=== PATIENT | male | born 1970 | race Caucasian/White ===

== ENCOUNTER 2020-02-15 18:53 | Inpatient (IN) | payer OTHER ==
--- OUTSIDE RECORDS SUMMARY | 2020-02-15 19:12 | XMS ---
:1970 Author Organization [facility] Support Name Relationship Address Phone [facility] Unavailable [address] [place] [address] GERALDINE PARDO [address] [place] [address] Re-disclosure Warning The records that you are about to access may contain information from federally- assisted alcohol or drug abuse programs. If such information is present, then the following federally mandated warning applies: This information has been disclosed to you from records protected by federal confidentiality rules (42 CFR part 2). The federal rules prohibit you from making any further disclosure of this information unless further disclosure is expressly permitted by the written consent of the person to whom it pertains or as otherwise permitted by 42 CFR part 2. A general authorization for the release of medical or other information is NOT sufficient for this purpose. The Federal rules restrict any use of the information to criminally investigate or prosecute any alcohol or drug abuse patient.The records that you are about to access may contain highly sensitive health information, the redisclosure of which is protected by Article 27-F of the [facility] Public Health law. If you continue you may haveaccess to information: Regarding HIV / AIDS; Provided by facilities licensed or operated by the [facility] Office of Mental Health; or Provided by the [facility] Office for People With Developmental Disabilities. If such information is present, then the following [facility] mandated warning applies: This information has been disclosed to you from confidential records which are protected by state law. State law prohibits you from making any further disclosure of this information without the specific written consent of the person to whom it pertains, or as otherwise permitted by law. Any unauthorized further disclosure in violation of state law may result in a fine or detention sentence or both. A general authorization for the release of medical or other information is NOT sufficient authorization for further disclosure. Insurance Providers Payer name Policy type / Policy ID Covered Covered green party's Policy Plan Coverage type green party ID relationship to Mcnulty Information mcnulty LORETO SNOWO [id number] SO [id number] 5
--- NOTE | 2020-02-15 20:23 | PDOC ---
Attending Attestation - Resident Resident Name: Gabriel James - ED Attending Attestation I have performed the following: I have examined & evaluated the patient, The case was reviewed & discussed with the resident, I agree w/resident's findings & plan - HPI HPI: 02/15/20 21:14 PT COMES WITH PUS IN HIS RIGHT GROIN. HE HAS HAD THIS FOR 3 WEEKS. TOOK A 10 DAY COURSE OF CLINDA WITH SOME RELIEF BUT NOT A LOT. PT TOOK BACTRIM DS FOR 8 DAYS AND THEN VISITED [facility] TODAY AND THEY SENT HIM HERE. PT HAS NO FEVER; HE IS MORBIDLY OBESE AND HE HAS HUGE PANNUS AND THIGH AND PUS IS TRAPPED BY HIS FAT AND CANNOT COME OUT. 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 I TOLD HIM TO USE HIS SICK DAYS WHICH HE ADMITS HE HAS PLENTY OF. - Physicial Exam PE: 02/15/20 21:19 AFEBRILE; AMBULATORY NAD MORBID OBESITY HEENT NORMAL HEART NORMAL LUNGS CTA B ABD OBESE GROIN GOOEY WITH PUS ONCE WE HOLD PANNUS BACK, PUS RUNS LIKE A FAUCET. PT WILL GET CT IMAGING - Medical Decision Making 02/15/20 21:20 LABS NORMAL FS GLUCOSE IS 500S AT [facility] HERE FS GLC IS 446 PT WILL GET REG INSULIN HERE 10U SUBCUTANEOUS VANCO HERE PCN ALLERGIC SO WE WILL GIVE MEROPENEM PT HAD A WOUND CULTURE SENT 02/15/20 21:23 PT WENT FOR CTA GROIN; ONCE RESULTS ARE BACK HE CAN BE ADMITTED 02/16/20 00:33 Patient Name: JACK PARDO THIS IS A PRELIMINARY REPORT FROM [facility] DATE OF SERVICE:2020-02-15 21:43:43 IMAGES: 347 EXAM: CT abdomen and pelvis with contrast HISTORY:abscess in rt groin COMPARISON: None. FINDINGS: Lung bases unremarkable. No pleural effusions. Hepatomegaly with possible hepatic steatosis. Splenomegaly. Suspect tiny calcified gallstones in contracted gallbladder. Pancreas and adrenal glands are unremarkable. Mild bilateral renal cortical scarring. No renal or urinary calculi. No AAA. No evidence for diverticulitis, appendicitis, small bowel obstruction, free fluid, or free air. Soft tissue edema in the right groin extending into the right lateral lower anterior pelvic wall suggestive of cellulitis. No abscess or drainable fluid collection at this time. No soft tissue gas. Discharge - Discharge Information Problems reviewed: Yes Clinical Impression/Diagnosis: Hyperglycemia, Pustular lesion Condition: Improved Disposition: VNS/HOME HEALTH CARE - Follow up/Referral - Patient Discharge Instructions - Post Discharge Activity
--- NOTE | 2020-02-15 20:26 | PDOC ---
History of Present Illness - General Chief Complaint: Blood Sugar Problem Stated Complaint: ABSCESS/SENT BY CMD Time Seen by Provider: 02/15/20 20:21 - History of Present Illness Initial Comments: 02/15/20 20:23 49yo obese M currently on ABX (failed bactrim, now on clinda) for cutaneous infection of the groin presents from [facility] w/ elevated blood sugar. He went to [facility] for follow up because his wound, now multiple weeks old, has not been healing well. They found his BG to be >500, so he was sent to the ED. He endorses two different wounds, one in the RLQ that he says is healing very well. The other one is in the right intertriginous fold. This one is painful and draining pus actively. He denies fevers, n/v. Past History - Medical History Allergies/Adverse Reactions: Allergies Allergy/AdvReac Type Severity Reaction Status Date / Time Penicillins Allergy Verified 07/31/14 00:55 Home Medications: Ambulatory Orders Losartan Potassium [Cozaar -] 50 mg PO DAILY 07/31/14 COPD: No HTN: Yes - Immunization History Immunization Up to Date: Yes - Psycho-Social/Smoking History Smoking History: Never smoked - Substance Abuse Hx (Audit-C & DAST Scrn) How often the patient has a drink containing alcohol: Never Score: In Men: 4 or > Positive; In Women: 3 or > Positive: 0 Screen Result (Pos requires Nsg. Audit-10AR): Negative Review of Systems - Review of Systems Able to Perform ROS?: Yes Is the patient limited Iranian proficient: No Constitutional: No: Chills, Diaphoresis, Fever, Weakness HEENTM: No: Recent change in vision, Tinnitus Respiratory: No: Cough, Shortness of Breath Cardiac (ROS): No: Chest Pain, Palpitations, Syncope ABD/GI: No: Abd. Pain w/ defecation, Diarrhea, Nausea, Vomiting : Yes: Lesions (draining wound in the R intertriginous fold). No: Dysuria, Discharge, Frequency Musculoskeletal: No: Back Pain, Muscle Weakness Integumentary: Yes: Lesions Neurological: No: Headache, Numbness, Paresthesia, Weakness Endocrine: No: Symptoms Reported Hematologic/Lymphatic: No: Symptoms Reported All Other Systems: Reviewed and Negative *Physical Exam - Vital Signs Last Vital Signs Temp Pulse Resp BP Pulse Ox 97.3 F L 117 H 20 170/104 H 99 02/15/20 19:03 02/15/20 19:03 02/15/20 19:03 02/15/20 19:03 02/15/20 19:03 - Physical Exam General Appearance: Yes: Nourished, Appropriately Dressed. No: Apparent Distress, Disheveled HEENT: positive: EOMI, Normal ENT Inspection, Normal Voice Neck: positive: Trachea midline, Supple Respiratory/Chest: positive: Lungs Clear. negative: Chest Tender Cardiovascular: positive: Regular Rhythm, Tachycardia Gastrointestinal/Abdominal: positive: Normal Bowel Sounds, Soft, Protuberent, Other (1 cm long actively pus-draining lesion in the R intertriginous fold. it is surrounded by 1" wide erythematous ring. There is also a 1" healing wound in the RLQ/R hypogastrum btw ASIS and pubic symphysis that is not draining.). negative: Pulsatile Mass, Guarding Male Genitalia: positive: normal genitalia. negative: discharge, testicular mass, CVAT, hematuria Musculoskeletal: positive: Normal Inspection, CVA Tenderness Extremity: positive: Normal Capillary Refill. negative: Pedal Edema, Swelling Integumentary: positive: Normal Color, Dry, Warm Neurologic: positive: Fully Oriented, Alert, Normal Mood/Affect ED Treatment Course - LABORATORY CBC & Chemistry Diagram: 02/16/20 05:55 02/16/20 05:55 Medical Decision Making - Medical Decision Making 02/15/20 21:29 49yo obese M w/ 3wks of groin wound on 2nd ABX and now draining pus from lesion. BG >500, now 440s obese male + elevated BG + groin wound -> possible new DM2 dx and fear of Tiana's -> ABX IV + CT of ABD/Pelvis + LR + insulin. Pt's CBC and CMP unremarkable except for Na 131 and BG 446. BUN, Cr, Anion gap, K all wnl Will admit for blood sugar control, possible new DM dx, and tx of abscess. Discharge - Discharge Information Problems reviewed: Yes Clinical Impression/Diagnosis: Hyperglycemia, Pustular lesion Condition: Good - Admission Yes - Follow up/Referral - Patient Discharge Instructions - Post Discharge Activity
[2020-02-15] MEDS ORDERED: SODIUM CHLORIDE 1,000 ML IV STA (20:34)
[2020-02-15 20:38] LABS: BASO % 0.7 % (0-2.0); EOS % 0.8 % (0-4.5); HEMATOCRIT 43.7 % (35.4-49); HEMOGLOBIN 14.6 GM/dL (11.7-16.9); LYMPH % 22.4 % (8-40); MCH 30.8 pg (25.7-33.7); MCHC 33.3 g/dl (32.0-35.9); MEAN CELL VOLUME 92.6 fl (80-96); MEAN PLT VOLUME 7.8 fl (7.5-11.1); NEUT % 69.1 % (42.8-82.8); PLATELET COUNT 355 K/MM3 (134-434); RBC 4.72 M/mm3 (4.00-5.60); RDW 13.7 % (11.9-15.9); WHITE BLOOD COUNT 9.5 K/mm3 (4.0-10.0)
[2020-02-15 20:45] LABS: VENOUS BASE EXCESS -4.5 mmol/L (-2-2); VENOUS O2 SATURATION 83.5 % (70-80); VENOUS PCO2 36.3 mmHg (38-52); VENOUS PH 7.362 (7.310-7.410)
[2020-02-15] MEDS ORDERED: LACTATED RINGERS SOLUTION 1000 ML INFUS.BAG IV ONE (20:45)
[2020-02-15 20:51] LABS: INR 1.01 (0.83-1.09); PROTHROMBIN TIME (PATIENT) 11.9 SEC (9.7-13.0)
[2020-02-15 20:54] LABS: ACTIVATED PTT 29.9 SECONDS (25.2-36.5)
[2020-02-15 21:07] LABS: BILIRUBIN,TOTAL 0.6 mg/dL (0.2-1); BLOOD UREA NITROGEN 12.4 mg/dL (7-18); CALCIUM 8.8 mg/dL (8.5-10.1); CREATININE 0.8 mg/dL (0.55-1.3); POTASSIUM 4.3 mmol/L (3.5-5.1); TOT PROT 7.2 g/dl (6.4-8.2)
[2020-02-15] MEDS ORDERED: VANCOMYCIN 1 GM in D5W (PRE-DOCKED) 1,000 MG/250 ML IVPB ONE (21:14)
[2020-02-15] MEDS ORDERED: INSULIN REGULAR HUMAN 100 UNITS/ML *VIAL SQ ONE (21:24)
[2020-02-15] MEDS ORDERED: VANCOMYCIN 1 GRAM (PRE-DOCKED) 1,000 MG/250 ML BAG IVPB ONE (21:43)
--- OUTSIDE RECORDS SUMMARY | 2020-02-16 00:28 | XMS ---
:1970 Author Organization [facility] Support Name Relationship Address Phone [facility] Unavailable [address] [facility] [place] [address] [address] [place] [address] Re-disclosure Warning The records that you are [...] is protected by Article 27-F of the [facility] Public Health law. If you continue you may haveaccess to information: Regarding HIV / AIDS; Provided by facilities licensed or operated by the [facility] Office of Mental Health; or Provided by the [facility] Office for People With Developmental Disabilities. If such information is present, then the following [facility] mandated warning applies: This information has been [...] law may result in a fine or care home sentence or both. A general authorization for the release of medical or other information is NOT sufficient authorization for further disclosure. Insurance Providers Payer name Policy type / Policy ID Covered Covered alliance party's Policy Plan Coverage type alliance party ID relationship to Mcnulty Information mcnulty LORETO SNOWO [id number] SO [id number] 5
--- NOTE | 2020-02-16 01:07 | PN ---
Teaching Attending Note Name of Resident: Emiliaon Griffin ATTENDING PHYSICIAN STATEMENT I saw and evaluated the patient. I reviewed the resident's note and discussed the case with the resident. I agree with the resident's findings and plan as documented. SUBJECTIVE: 49yoM with obesity and hypertension who presents with redness and pain in his groin and right lower abdominal area. Patient reports about 3 weeks ago he developed a rash in the right inguinal area. He was prescribed clindamycin by telemedicine and completed a 10 day course during which time he noticed purulent drainage from the groin. The rash improved but was not resolving so telemedicine prescribed him Bactrim which he has been taking for the past 7 days but still without improvement of the rash or drainage. Endorses one prior episode of groin abscess many years ago which resolved with oral antibiotics. Denies fever, chills, nausea, vomiting, diarrhea. Does note polydipsia, polyuria, and blurry vision for the past month. Afebrile on arrival to the ED, BP and HR elevated. Purulent drainage noted from the right groin. Labs show WBC 9.5, sodium 131 but corrected to 140, glucose 487, lactic acid 1.5. CT of the abd/pelvis showed soft tissue edema in the right groin extending to the right lateral lower anterior pelvic wall, no abscess or drainable fluid collection and no soft tissue gas. Patient received vancomycin, levofloxacin, and metronidazole. OBJECTIVE: Vital Signs - 24 hr 02/15/20 02/16/20 19:03 01:31 Temperature 97.3 F L 97.8 F Pulse Rate 117 H Pulse Rate [ 99 H Right Radial] Respiratory 20 18 Rate Blood Pressure 170/104 H Blood Pressure 139/84 [Right Arm] O2 Sat by Pulse 99 98 Oximetry (%) EXAM Gen: awake, alert, NAD HEENT: NC/AT CV: RRR, no MRG Resp: CTAB, unlabored Abd: Soft, NT, ND, +BS Ext: No edema Derm: Mild erythema right lower abdominal wall surrounding 3cm scab, nontender, not warm to touch. Erythema is discrete from wound in right groin, with active purulent drainage. Neuro: CN II-XII grossly intact Laboratory Results - last 24 hr 02/15/20 02/15/20 02/15/20 20:15 20:15 20:15 WBC 9.5 RBC 4.72 Hgb 14.6 Hct 43.7 MCV 92.6 MCH 30.8 MCHC 33.3 RDW 13.7 Plt Count 355 MPV 7.8 Absolute Neuts (auto) 6.5 Neutrophils % 69.1 Lymphocytes % 22.4 Monocytes % 7.0 Eosinophils % 0.8 Basophils % 0.7 Nucleated RBC % 0 PT with INR 11.90 INR 1.01 PTT (Actin FS) 29.9 VBG pH 7.362 POC VBG pCO2 36.3 L POC VBG pO2 49.0 H VBG HCO3 20.1 L VBG O2 Sat (Renetta) 83.5 H VBG Base Excess -4.5 L Sodium Potassium Chloride Carbon Dioxide Anion Gap BUN Creatinine Est GFR (CKD-EPI)AfAm Est GFR (CKD-EPI)NonAf POC Glucometer Random Glucose Lactic Acid Calcium Total Bilirubin AST ALT Alkaline Phosphatase Total Protein Albumin 02/15/20 02/15/20 02/15/20 20:15 20:15 21:21 WBC RBC Hgb Hct MCV MCH MCHC RDW Plt Count MPV Absolute Neuts (auto) Neutrophils % Lymphocytes % Monocytes % Eosinophils % Basophils % Nucleated RBC % PT with INR INR PTT (Actin FS) VBG pH POC VBG pCO2 POC VBG pO2 VBG HCO3 VBG O2 Sat (Renetta) VBG Base Excess Sodium 131 L Potassium 4.3 Chloride 97 L Carbon Dioxide 24 Anion Gap 11 BUN 12.4 Creatinine 0.8 Est GFR (CKD-EPI)AfAm 122.43 Est GFR (CKD-EPI)NonAf 105.63 POC Glucometer 446 Random Glucose 487 H* Lactic Acid 1.5 Calcium 8.8 Total Bilirubin 0.6 AST 22 ALT 34 Alkaline Phosphatase 104 Total Protein 7.2 Albumin 3.0 L 02/16/20 00:33 WBC RBC Hgb Hct MCV MCH MCHC RDW Plt Count MPV Absolute Neuts (auto) Neutrophils % Lymphocytes % Monocytes % Eosinophils % Basophils % Nucleated RBC % PT with INR INR PTT (Actin FS) VBG pH POC VBG pCO2 POC VBG pO2 VBG HCO3 VBG O2 Sat (Renetta) VBG Base Excess Sodium Potassium Chloride Carbon Dioxide Anion Gap BUN Creatinine Est GFR (CKD-EPI)AfAm Est GFR (CKD-EPI)NonAf POC Glucometer 332 Random Glucose Lactic Acid Calcium Total Bilirubin AST ALT Alkaline Phosphatase Total Protein Albumin Imaging, EKG reviewed in chart ASSESSMENT AND PLAN: 49yoM with obesity and hypertension admitted with right groin purulent cellulitis resistant to outpatient management and hyperglycemia. Purulent cellulitis right groin Without resolution despite outpatient clindamycin and Bactrim No drainable abscess on CT, no evidence of Tiana's gangrene s/p vancomycin, levofloxacin, and metronidazole (reported penicillin allergy) - f/u blood and wound cultures - continue empiric vancomycin, levofloxacin, metronidazole - ID consult Hyperglycemia Glucose in 400s on arrival with ROS positive for polyuria, polydipsia, and blurry vision High suspicion for diabetes - ISS - check A1c DVT ppx: Lovenox subq
--- NOTE | 2020-02-16 01:31 | HP ---
CHIEF COMPLAINT: Draining groin wound PCP: HISTORY OF PRESENT ILLNESS: Mr. Keys is a 49M w a pmhx of htn and Right meniscal tear repair 20 years ago presenting to the ED for a chief complaint of a persistently draining erythematous non tender wound in his right inguinal fold and right lower quadrant lateral to the umbilicus. The patient reports this had started 3 weeks ago and was prescribed clindamycin and bactrim. The patient reports slow remission of the swelling and redness. He reports that his job requires prolonged sitting which has recently irritated the area and has caused increased inflammation of the area. The patient endorses prior inflammation of a groin wound many years ago. He states that he has never experienced increased thirst, urination, pain in his legs feet or hands, change in bowel habits, chest pain, or shortness of breath. ER course was notable for: (1) Glucose of 458 (2) Sodium 131 (3) BP 170s/100s Recent Travel: denies PAST MEDICAL HISTORY: see above PAST SURGICAL HISTORY: see above Social History: Smoking: denies Alcohol: denies Drugs: denies Allergies Penicillins Allergy (Verified 07/31/14 00:55) HOME MEDICATIONS: Home Medications Medication Instructions Recorded Losartan Potassium [Cozaar -] 50 mg PO DAILY 07/31/14 REVIEW OF SYSTEMS see hpi PHYSICAL EXAMINATION Vital Signs - 24 hr 02/15/20 19:03 Temperature 97.3 F L Pulse Rate 117 H Respiratory 20 Rate Blood Pressure 170/104 H O2 Sat by Pulse 99 Oximetry (%) GENERAL: Awake, alert, and fully oriented, in no acute distress. HEAD: Normal with no signs of trauma. LUNGS: Breath sounds equal, clear to auscultation bilaterally. No wheezes, and no crackles. No accessory muscle use. HEART: Regular rate and rhythm, normal S1 and S2 without murmur, rub or gallop. ABDOMEN: Soft, nontender, not distended, normoactive bowel sounds, no guarding, no rebound, no masses. No hepatomegaly or splenomegaly. LOWER EXTREMITIES: 2+ pulses, warm, well-perfused. No calf tenderness. No peripheral edema. SKIN: right inguinal fold draining white puss, erythema of right inguinal fold extending down medial thigh toward the dorsal aspect of r thigh, RLQ abdomenal erythema with scab Laboratory Results - last 24 hr 02/15/20 02/15/20 02/15/20 20:15 20:15 20:15 WBC 9.5 RBC 4.72 Hgb 14.6 Hct 43.7 MCV 92.6 MCH 30.8 MCHC 33.3 RDW 13.7 Plt Count 355 MPV 7.8 Absolute Neuts (auto) 6.5 Neutrophils % 69.1 Lymphocytes % 22.4 Monocytes % 7.0 Eosinophils % 0.8 Basophils % 0.7 Nucleated RBC % 0 PT with INR 11.90 INR 1.01 PTT (Actin FS) 29.9 VBG pH 7.362 POC VBG pCO2 36.3 L POC VBG pO2 49.0 H VBG HCO3 20.1 L VBG O2 Sat (Renetta) 83.5 H VBG Base Excess -4.5 L Sodium Potassium Chloride Carbon Dioxide Anion Gap BUN Creatinine Est GFR (CKD-EPI)AfAm Est GFR (CKD-EPI)NonAf POC Glucometer Random Glucose Lactic Acid Calcium Total Bilirubin AST ALT Alkaline Phosphatase Total Protein Albumin 02/15/20 02/15/20 02/15/20 20:15 20:15 21:21 WBC RBC Hgb Hct MCV MCH MCHC RDW Plt Count MPV Absolute Neuts (auto) Neutrophils % Lymphocytes % Monocytes % Eosinophils % Basophils % Nucleated RBC % PT with INR INR PTT (Actin FS) VBG pH POC VBG pCO2 POC VBG pO2 VBG HCO3 VBG O2 Sat (Renetta) VBG Base Excess Sodium 131 L Potassium 4.3 Chloride 97 L Carbon Dioxide 24 Anion Gap 11 BUN 12.4 Creatinine 0.8 Est GFR (CKD-EPI)AfAm 122.43 Est GFR (CKD-EPI)NonAf 105.63 POC Glucometer 446 Random Glucose 487 H* Lactic Acid 1.5 Calcium 8.8 Total Bilirubin 0.6 AST 22 ALT 34 Alkaline Phosphatase 104 Total Protein 7.2 Albumin 3.0 L 02/16/20 00:33 WBC RBC Hgb Hct MCV MCH MCHC RDW Plt Count MPV Absolute Neuts (auto) Neutrophils % Lymphocytes % Monocytes % Eosinophils % Basophils % Nucleated RBC % PT with INR INR PTT (Actin FS) VBG pH POC VBG pCO2 POC VBG pO2 VBG HCO3 VBG O2 Sat (Renetta) VBG Base Excess Sodium Potassium Chloride Carbon Dioxide Anion Gap BUN Creatinine Est GFR (CKD-EPI)AfAm Est GFR (CKD-EPI)NonAf POC Glucometer 332 Random Glucose Lactic Acid Calcium Total Bilirubin AST ALT Alkaline Phosphatase Total Protein Albumin ASSESSMENT/PLAN: Mr. Keys is a 49M w a pmhx of htn and Right meniscal tear repair 20 years ago presenting to the ED for a chief complaint of a persistently draining erythematous non tender wound in his right inguinal fold and right lower quadrant lateral to the umbilicus admitted for cellulitis. #Cellulitis vs hydraditis Suppurativa - absent axilary fold infection - inguinal folds have been responsive to bactrim and clindamycin - patient placed on vanc, flagyl, levaquin - consult ID - CT AP reveals - #?DM - Glucose 487 - continue to monitor sugars - A1C > 6.5 - ISS - sodium diabetic diet - diabetic counseling Pseudohyponatremia - when corrected for glucose - Sodium = 140 = wnl #HTN - continue home losartan - sodium controlled diet - CTM BP #DVT ppx - Lovenox 40mg SQ #DISPO - medsurg #Advanced directive - Full code ATTENDING PHYSICIAN STATEMENT I saw and evaluated the patient. I reviewed the resident's note and discussed the case with the resident. I agree with the resident's findings and plan as documented. SUBJECTIVE: OBJECTIVE: ASSESSMENT AND PLAN:
[2020-02-16] MEDS ORDERED: PNEUMOC 13-VAL CONJ-DIP CRM/PF 0.5 ML DISP.SYRIN IM ONE (02:19)
[2020-02-16] MEDS ORDERED: FLU VACCINE (FLULAVAL) PF 60 MCG/0.5 ML SYRINGE 2020-2021 IM ONE (02:20)
[2020-02-16] MEDS ORDERED: ACETAMINOPHEN 1000 MG/100 ML VIAL (NON FORMULARY) IVPB ONE (02:31)
[2020-02-16] MEDS ORDERED: INSULIN (NOVOLOG) ASPART 100 UNITS/ML 10ML VIAL SQ ONE ×2 (02:33→03:24)
[2020-02-16] MEDS ORDERED: INSULIN SLIDING SCALE (NOVOLOG) 1 VIAL SQ ONE (03:16)
[2020-02-16 04:11] VITALS: BMI 47.1
[2020-02-16] MEDS: INSULIN SLIDING SCALE (NOVOLOG) 1 VIAL SQ SCH ×4 (06:22→21:24)
[2020-02-16 07:03] LABS: BASO % 0.7 % (0-2.0); EOS % 1.9 % (0-4.5); HEMATOCRIT 36.5 % (35.4-49); HEMOGLOBIN 12.2 GM/dL (11.7-16.9); LYMPH % 33.2 % (8-40); MCH 30.4 pg (25.7-33.7); MCHC 33.4 g/dl (32.0-35.9); MEAN PLT VOLUME 7.3 fl (7.5-11.1); MONO % 9.3 % (3.8-10.2); NEUT % 54.9 % (42.8-82.8); PLATELET COUNT 280 K/MM3 (134-434); RBC 4.01 M/mm3 (4.00-5.60); RDW 13.5 % (11.9-15.9); WHITE BLOOD COUNT 7.4 K/mm3 (4.0-10.0)
[2020-02-16 07:31] LABS: ALBUMIN 2.3 g/dl (3.4-5.0); BILIRUBIN,TOTAL 0.5 mg/dL (0.2-1); BLOOD UREA NITROGEN 9.2 mg/dL (7-18); CALCIUM 8.2 mg/dL (8.5-10.1); CREATININE 0.8 mg/dL (0.55-1.3); MAGNESIUM 1.7 mg/dL (1.8-2.4); POTASSIUM 3.8 mmol/L (3.5-5.1); TOT PROT 5.6 g/dl (6.4-8.2)
[2020-02-16] MEDS ORDERED: MAGNESIUM 2GM/50ML STERILE WATER IVPB IVPB ONE (07:41)
[2020-02-16] MEDS: ENOXAPARIN NA (PORCINE) 40 MG/0.4 ML DISP.SYRIN SQ SCH ×2 (09:17→21:24)
[2020-02-16] MEDS: INSULIN (LEVEMIR) 100 UNITS/ML UNITS SQ SCH ×2 (09:23→21:24)
[2020-02-16] MEDS ORDERED: WATER IVPB SCH (10:00)
[2020-02-16] MEDS ORDERED: DEXTROSE 5% IVPB SCH (10:00)
[2020-02-16] MEDS ORDERED: ENOXAPARIN NA (PORCINE) 40 MG/0.4 ML DISP.SYRIN SQ SCH (10:00)
[2020-02-16] MEDS ORDERED: VANCOMYCIN HCL IVPB SCH (10:00)
--- NOTE | 2020-02-16 10:02 | PN ---
Progress Note (short form) - Note Progress Note: ID CONSULT DICTATED SOFT TISSUE ABSCESSES RLQ ABDO WALL, R GROIN R/O SEPSIS SECONDARY TO ST INFECTION UNCONTROLLED NEW ONSET DM MORBID OBESITY PCN ALLERGY AWAIT C/S SURGICAL EVAL EMPIRIC VANCOMYCIN/ AZTREONAM/ FLAGYL
--- NOTE | 2020-02-16 10:06 | PN ---
Teaching Attending Note Name of Resident: Christa Dalton ATTENDING PHYSICIAN STATEMENT I saw and evaluated the patient. I reviewed the resident's note and discussed the case with the resident. I agree with the resident's findings and plan as documented. SUBJECTIVE: pt seen and examined at bedside OBJECTIVE: Last Vital Signs Temp Pulse Resp BP Pulse Ox 98.0 F 94 H 18 122/76 97 02/16/20 06:00 02/16/20 06:00 02/16/20 06:00 02/16/20 06:00 02/16/20 06:00 GENERAL: Awake, alert, and fully oriented, in no acute distress. HEAD: Normal with no signs of trauma. EYES: Pupils equal, round and reactive to light, sclera anicteric, conjunctiva clear. LUNGS: Breath sounds equal, clear to auscultation bilaterally. No wheezes, and no crackles. No accessory muscle use. HEART: Regular rate and rhythm, normal S1 and S2 ABDOMEN: Soft, nontender, not distended MUSCULOSKELETAL: Normal range of motion at all joints. No bony deformities or tenderness. No CVA tenderness. UPPER EXTREMITIES: 2+ pulses, warm, well-perfused. No cyanosis. No clubbing. No peripheral edema. LOWER EXTREMITIES: 2+ pulses, warm, well-perfused. No calf tenderness. No peripheral edema. NEUROLOGICAL: Cranial nerves II-XII intact. Normal speech. skin: rt groin cellulitis +/- abcess/fluid collection, actively draining and on pressure, serosanguinous CBCD WBC 7.4 K/mm3 (4.0-10.0) 02/16/20 05:55 RBC 4.01 M/mm3 (4.00-5.60) 02/16/20 05:55 Hgb 12.2 GM/dL (11.7-16.9) 02/16/20 05:55 Hct 36.5 % (35.4-49) D 02/16/20 05:55 MCV 91.0 fl (80-96) 02/16/20 05:55 MCHC 33.4 g/dl (32.0-35.9) 02/16/20 05:55 RDW 13.5 % (11.9-15.9) 02/16/20 05:55 Plt Count 280 K/MM3 (134-434) D 02/16/20 05:55 MPV 7.3 fl (7.5-11.1) L 02/16/20 05:55 CMP Sodium 136 mmol/L (136-145) 02/16/20 05:55 Potassium 3.8 mmol/L (3.5-5.1) 02/16/20 05:55 Chloride 101 mmol/L (98-107) 02/16/20 05:55 Carbon Dioxide 26 mmol/L (21-32) 02/16/20 05:55 Anion Gap 8 MMOL/L (8-16) 02/16/20 05:55 BUN 9.2 mg/dL (7-18) 02/16/20 05:55 Creatinine 0.8 mg/dL (0.55-1.3) 02/16/20 05:55 Calcium 8.2 mg/dL (8.5-10.1) L 02/16/20 05:55 Total Bilirubin 0.5 mg/dL (0.2-1) 02/16/20 05:55 AST 16 U/L (15-37) 02/16/20 05:55 ALT 26 U/L (13-61) 02/16/20 05:55 Alkaline Phosphatase 76 U/L (45-117) 02/16/20 05:55 Total Protein 5.6 g/dl (6.4-8.2) L 02/16/20 05:55 Albumin 2.3 g/dl (3.4-5.0) L 02/16/20 05:55 Active Medications Enoxaparin Sodium (Lovenox -) 40 mg SQ BID TRACEY Last Admin: 02/16/20 09:17 Dose: 40 mg Documented by: Vancomycin HCl 2,000 mg/ (Dextrose) 250 mls @ 125 mls/hr IVPB Q12H TRACEY; Protocol Metronidazole (Flagyl 500mg Premixed Ivpb -) 500 mg in 100 mls @ 100 mls/hr IVPB Q6H-IV TRACEY Last Admin: 02/16/20 09:17 Dose: 100 mls/hr Documented by: Levofloxacin (Levaquin 750 Mg Premixed Ivpb -) 750 mg in 150 mls @ 100 mls/hr IVPB ONCE ONE; Protocol Stop: 02/16/20 23:29 Influenza Virus Vaccine (Flulaval Quad [facility]) 60 mcg IM .ONCE ONE Stop: 02/16/20 02:21 Insulin Aspart (Novolog Vial Sliding Scale -) 1 vial SQ [facility]; Protocol Last Admin: 02/16/20 06:22 Dose: 6 units Documented by: Insulin Aspart (Novolog Vial) 5 units SQ TIDAC [facility] Insulin Detemir (Levemir Vial) 20 units SQ BID@0700,2200 [facility] Last Admin: 02/16/20 09:23 Dose: 20 units Documented by: Pneumococcal 13-Valent Conj Vacc (Prevnar 13 Syringe -) 0.5 ml IM .ONCE ONE Stop: 02/16/20 02:20 ASSESSMENT AND PLAN: 49 YO man with Mhx of HTN, and morbid obesity who presented to ED due to rt groin area cellulits not responding to outpatient Abx therapy. # Rt Groin Cellulitis -abscess/fluid collection forming -failed outpatient clindamycin and bactrim PO -received vancomycin/levofloxacin, metronidazole in ED -ID consult requested to adjust ABx regimen (penicillin allergy) -CT a/p noted. -surgical consult appreciated -ID consult appreciated -discussed with consult -plan for I&D with surgery # new onset DM -started on Levimir BID, novolog with meals plus sliding scale -goal for inpatient 140-180 -HgA1c is 14 -recent eye exam repoorted normal -will obtain UA, ptn/creatinine, lipid profile -keep ACEi -wt loss, diet, exercise discussed HTN Morbid obesity DVT prophylaxis
--- NOTE | 2020-02-16 10:42 | CONS ---
INFECTIOUS DISEASE CONSULTATION DATE OF CONSULTATION: DATE OF DICTATION: 02/16/2020 HISTORY: The patient is a 49-year-old morbidly obese male evaluated for soft tissue infection of the right groin and right lower abdomen. Patient states that he has a sedentary job. He reports that he had been sitting for prolonged periods at his desk. Approximately 3 weeks ago he began to notice some purulent drainage from an erythematous area on the right lower abdomen and the right groin. He had sought medical attention via telemedicine and was prescribed a 10-day course of clindamycin. Despite the course of therapy, he did not see any significant improvement. He was subsequently prescribed an 8-day course of Bactrim. Again, he did not notice significant improvement. He presented to an urgent care center where he was noted to have uncontrolled blood sugar and was referred to the emergency room. In the emergency room he was noted to have grossly purulent drainage from a right groin wound, elevated blood sugars. He denies any associated fever or chills. He denies any prior history of serious soft tissue infection, states that he has not been diagnosed with diabetes, denies history of multidrug-resistant pathogens. No recent hospitalizations. PAST MEDICAL HISTORY: Positive for morbid obesity, now probable new onset diabetes mellitus. ALLERGIES: To PENCIILLIN. Nature of the PENICILLIN ALLERGY not known. Patient reports that his mother told him in childhood that he was allergic. He has no recall for any anaphylactic reaction. MEDICATIONS AT THE PRESENT TIME: Include vancomycin, Levaquin, Flagyl, Lovenox, losartan, insulin. SOCIAL HISTORY: He resides in the community, works doing office work, sedentary. Nonsmoker, nondrinker. SYSTEMS REVIEW: Neurologic: No loss of consciousness, seizure activity, focal weakness. Cardiac: Negative chest pain or palpitations. Respiratory: Negative cough or sputum production. Gastrointestinal: Negative vomiting or diarrhea. Genitourinary: Negative for urinary tract infection. LABORATORY DATA: White count 7.4, neutrophils 54, lymphocytes 33, monocytes 7, hematocrit 36.5, platelet count 280. BUN 9.2, creatinine 0.8. Hemoglobin A1c 14. Glucose 327; it had been as high as 487. COVID-19 pending. PHYSICAL EXAMINATION: General: He is awake and alert. He is in no acute distress. He is not acutely toxic appearing, morbidly obese supine in bed. Vital Signs: Temperature 98.0. No fever noted. Blood pressure 122/76, pulse 94 regular, respirations 18 per minute. HEENT: Sclerae are anicteric. Heart: Sounds S1, S2. Lungs: Clear. Abdomen: Obese, nontender. There is a healed wound present in the right lower quadrant with some surrounding erythema and mild induration. There is no expressible pus. Skin: Examination of the right groin there is induration and swelling present on the right lateral scrotum adjacent to the medial thigh. There is also area of induration and erythema present in the medial thigh in the groin. There is purulent drainage noted. No crepitus or fluctuance. IMPRESSION: 1. Soft tissue absence right lower quadrant abdominal wall and right groin. 2. Rule out sepsis secondary to soft tissue infection. 3. Possible impending Tiana syndrome. 4. Rule out hidradenitis suppurativa. 5. Uncontrolled new onset diabetes mellitus. 6. Morbid obesity. 7. PENICILLIN ALLERGY. Await culture results. Urgent surgical evaluation. Empiric antibiotic coverage in this PENICILLIN ALLERGIC patient with vancomycin, Azactam and Flagyl. Local wound care. Blood sugar control. Thank you for the kind referral. SHERYL GRAY M.D. [id number]
[2020-02-16] MEDS: LOSARTAN POTASSIUM 50 MG TABLET PO SCH (10:52)
[2020-02-16] MEDS: VANCOMYCIN HCL 1,500 MG in DEXTROSE 5%-WATER - 500 ML IVPB SCH ×2 (12:30→22:06)
--- NOTE | 2020-02-16 12:32 | PN ---
Physical Exam: SUBJECTIVE: Patient seen and examined. Denies any fever, chills, groin pain. OBJECTIVE: Vital Signs Period Temp Pulse Resp BP Sys/Alamguer Pulse Ox Last 24 Hr 97.3 F-99.0 F 88-117 18-20 122-170/76-104 97-100 GENERAL: The patient is awake, alert, and fully oriented, in no acute distress. HEAD: Normal with no signs of trauma. EYES: PERRL, extraocular movements intact, sclera anicteric, conjunctiva clear. No ptosis. ENT: Ears normal, nares patent, oropharynx clear without exudates, moist mucous membranes. NECK: Trachea midline, full range of motion, supple. LUNGS: Breath sounds equal, clear to auscultation bilaterally, no wheezes, no crackles, no accessory muscle use. HEART: Regular rate and rhythm, S1, S2 without murmur, rub or gallop. ABDOMEN: Soft, nontender, nondistended, normoactive bowel sounds, no guarding, no rebound, no hepatosplenomegaly, no masses. EXTREMITIES: 2+ pulses, warm, well-perfused, no edema. NEUROLOGICAL: Cranial nerves II through XII grossly intact. Normal speech, gait not observed. PSYCH: Normal mood, normal affect. SKIN: R groin cellulitis with fluid collection, serosanguineous draining on pressure Laboratory Results - last 24 hr 02/15/20 02/15/20 02/15/20 20:15 20:15 20:15 WBC 9.5 RBC 4.72 Hgb 14.6 Hct 43.7 MCV 92.6 MCH 30.8 MCHC 33.3 RDW 13.7 Plt Count 355 MPV 7.8 Absolute Neuts (auto) 6.5 Neutrophils % 69.1 Lymphocytes % 22.4 Monocytes % 7.0 Eosinophils % 0.8 Basophils % 0.7 Nucleated RBC % 0 PT with INR 11.90 INR 1.01 PTT (Actin FS) 29.9 VBG pH 7.362 POC VBG pCO2 36.3 L POC VBG pO2 49.0 H VBG HCO3 20.1 L VBG O2 Sat (Renetta) 83.5 H VBG Base Excess -4.5 L Sodium Potassium Chloride Carbon Dioxide Anion Gap BUN Creatinine Est GFR (CKD-EPI)AfAm Est GFR (CKD-EPI)NonAf POC Glucometer Random Glucose Hemoglobin A1c % Lactic Acid Calcium Phosphorus Magnesium Total Bilirubin AST ALT Alkaline Phosphatase Total Protein Albumin 02/15/20 02/15/20 02/15/20 20:15 20:15 21:21 WBC RBC Hgb Hct MCV MCH MCHC RDW Plt Count MPV Absolute Neuts (auto) Neutrophils % Lymphocytes % Monocytes % Eosinophils % Basophils % Nucleated RBC % PT with INR INR PTT (Actin FS) VBG pH POC VBG pCO2 POC VBG pO2 VBG HCO3 VBG O2 Sat (Renetta) VBG Base Excess Sodium 131 L Potassium 4.3 Chloride 97 L Carbon Dioxide 24 Anion Gap 11 BUN 12.4 Creatinine 0.8 Est GFR (CKD-EPI)AfAm 122.43 Est GFR (CKD-EPI)NonAf 105.63 POC Glucometer 446 Random Glucose 487 H* Hemoglobin A1c % Lactic Acid 1.5 Calcium 8.8 Phosphorus Magnesium Total Bilirubin 0.6 AST 22 ALT 34 Alkaline Phosphatase 104 Total Protein 7.2 Albumin 3.0 L 02/16/20 02/16/20 02/16/20 00:33 03:12 05:55 WBC 7.4 RBC 4.01 Hgb 12.2 Hct 36.5 D MCV 91.0 MCH 30.4 MCHC 33.4 RDW 13.5 Plt Count 280 D MPV 7.3 L Absolute Neuts (auto) 4.0 Neutrophils % 54.9 D Lymphocytes % 33.2 D Monocytes % 9.3 Eosinophils % 1.9 D Basophils % 0.7 Nucleated RBC % 0 PT with INR INR PTT (Actin FS) VBG pH POC VBG pCO2 POC VBG pO2 VBG HCO3 VBG O2 Sat (Renetta) VBG Base Excess Sodium Potassium Chloride Carbon Dioxide Anion Gap BUN Creatinine Est GFR (CKD-EPI)AfAm Est GFR (CKD-EPI)NonAf POC Glucometer 332 287 Random Glucose Hemoglobin A1c % Lactic Acid Calcium Phosphorus Magnesium Total Bilirubin AST ALT Alkaline Phosphatase Total Protein Albumin 02/16/20 02/16/20 02/16/20 05:55 05:55 06:09 WBC RBC Hgb Hct MCV MCH MCHC RDW Plt Count MPV Absolute Neuts (auto) Neutrophils % Lymphocytes % Monocytes % Eosinophils % Basophils % Nucleated RBC % PT with INR INR PTT (Actin FS) VBG pH POC VBG pCO2 POC VBG pO2 VBG HCO3 VBG O2 Sat (Renetta) VBG Base Excess Sodium 136 Potassium 3.8 Chloride 101 Carbon Dioxide 26 Anion Gap 8 BUN 9.2 Creatinine 0.8 Est GFR (CKD-EPI)AfAm 122.43 Est GFR (CKD-EPI)NonAf 105.63 POC Glucometer 300 Random Glucose 327 H Hemoglobin A1c % 14.1 H Lactic Acid Calcium 8.2 L Phosphorus 4.0 Magnesium 1.7 L Total Bilirubin 0.5 AST 16 ALT 26 Alkaline Phosphatase 76 Total Protein 5.6 L Albumin 2.3 L 02/16/20 10:40 WBC RBC Hgb Hct MCV MCH MCHC RDW Plt Count MPV Absolute Neuts (auto) Neutrophils % Lymphocytes % Monocytes % Eosinophils % Basophils % Nucleated RBC % PT with INR INR PTT (Actin FS) VBG pH POC VBG pCO2 POC VBG pO2 VBG HCO3 VBG O2 Sat (Renetta) VBG Base Excess Sodium Potassium Chloride Carbon Dioxide Anion Gap BUN Creatinine Est GFR (CKD-EPI)AfAm Est GFR (CKD-EPI)NonAf POC Glucometer 257 Random Glucose Hemoglobin A1c % Lactic Acid Calcium Phosphorus Magnesium Total Bilirubin AST ALT Alkaline Phosphatase Total Protein Albumin Active Medications Generic Name Dose Route Start Last Admin Trade Name Sadiq PRN Reason Stop Dose Admin Enoxaparin Sodium 40 mg 02/16/20 10:00 02/16/20 09:17 Lovenox - SQ 40 mg BID TRACEY Administration Metronidazole 500 mg in 100 mls @ 100 mls/hr 02/16/20 09:00 02/16/20 09:17 Flagyl 500mg Premixed Ivpb - IVPB 100 mls/hr Q6H-IV TRACEY Administration Vancomycin HCl 1,500 mg/ 500 mls @ 250 mls/hr 02/16/20 10:15 Dextrose IVPB BID [facility] Protocol Aztreonam 2 gm/ Dextrose 100 mls @ 100 mls/hr 02/16/20 10:15 IVPB Q8H-IV TRACEY Protocol Influenza Virus Vaccine 60 mcg 02/16/20 02:20 Flulaval Quad [id number] Syr IM 02/16/20 02:21 .ONCE ONE Insulin Aspart 1 vial 02/16/20 07:00 02/16/20 06:22 Novolog Vial Sliding Scale - SQ 6 units ACHS TRACEY Administration Protocol Insulin Aspart 5 units 02/16/20 11:00 Novolog Vial SQ TIDAC [facility] Insulin Detemir 20 units 02/16/20 08:30 02/16/20 09:23 Levemir Vial SQ 20 units BID@0700,2200 TRACEY Administration Losartan Potassium 50 mg 02/16/20 10:00 02/16/20 10:52 Cozaar - PO 50 mg DAILY TRACEY Administration Pneumococcal 13-Valent Conj Vacc 0.5 ml 02/16/20 02:19 Prevnar 13 Syringe - IM 02/16/20 02:20 .ONCE ONE ASSESSMENT/PLAN: Pt is a 49 year old male with PMHx of HTN presenting to the ED with skin swelling and abscess not responding to outpatient antibiotic therapy, admitted for R groin cellulitis #Right groin cellulitis -received clindamycin and bactrim outpatient, no improvement of symptoms per pt -in ED, received vancomycin, levaquin and flagyl -ID consulted (PCN allergy), switched to vancomycin, aztreonam and flagyl -Surgery consulted (Dr. Handy), to evaluate #New onset DM -blood glucose on admission 487, A1c 14.1 -started on Levemir 20u BID, Novolog 5u TIDAC and SSI -ordered UA, Uprotein:Dark Room Attendant, lipid profile, microalbumin, lipid panel -continue Losartan, as will be renal protective in DM pt -Discussed weight loss, diet and exercise, and DM education -pseudohypernatremia on admission due to elevated bG #Hx of HTN -continue home Losartan FEN No standing fluids Monitor electrolytes Diabetic sodium diet PPx Lovenox 40mg BID Dispo Admitted to med surg. New onset DM, R groin cellulitis. On vanc, flagyl, aztreonam. ATTENDING PHYSICIAN STATEMENT I saw and evaluated the patient. I reviewed the resident's note and discussed the case with the resident. I agree with the resident's findings and plan as documented. SUBJECTIVE: OBJECTIVE: ASSESSMENT AND PLAN:
[2020-02-16] MEDS: INSULIN (NOVOLOG) ASPART 100 UNITS/ML 10ML VIAL SQ SCH ×2 (12:35→17:30)
--- NOTE | 2020-02-16 14:46 | CONSULT ---
- Consultation REQUESTING PROVIDER: CONSULT REQUEST: We have been asked to surgically evaluate this patient for a soft tissue infection of the right groin. Hospitalist:Zahira Vargas MD HISTORY OF PRESENT ILLNESS: HAYDEN who is a 49 y/o male who presented w/pain and swelling and d/c from his right groin after failed outpatient for an ABSSSI of the right groin. PMHx: HTN PSHx: right knee surgery Home Medications Medication Instructions Recorded Losartan Potassium [Cozaar -] 50 mg PO DAILY 07/31/14 Allergies Allergy/AdvReac Type Severity Reaction Status Date / Time Penicillins Allergy Verified 07/31/14 00:55 REVIEW OF SYSTEMS: CONSTITUTIONAL: Absent: fever, chills, diaphoresis, generalized weakness, malaise, loss of appetite, weight change CARDIOVASCULAR: Absent: chest pain, syncope, palpitations, irregular heart rate, lightheadedness, peripheral edema RESPIRATORY: Absent: cough, shortness of breath, dyspnea with exertion, wheezing, stridor, hemoptysis GASTROINTESTINAL: Absent: abdominal pain, abdominal distension, nausea, vomiting, diarrhea, constipation, melena, hematochezia GENITOURINARY: Absent: dysuria, frequency, urgency, hesitancy, hematuria, flank pain, genital pain MUSCULOSKELETAL: Absent: myalgia, arthralgia, joint swelling, back pain, neck pain SKIN: Absent: rash, itching, pallor HEMATOLOGIC/IMMUNOLOGIC: Absent: easy bleeding, easy bruising, lymphadenopathy NEUROLOGIC: Absent: headache, focal weakness, paresthesias, dizziness, unsteady gait, seizure, mental status changes, bladder or bowel incontinence PSYCHIATRIC: Absent: anxiety, depression, suicidal or homicidal ideation, hallucinations. PHYSICAL EXAM: GENERAL: Awake, alert, and fully oriented, in no acute distress. HEAD: Normal with no signs of trauma. EYES: PERRL, sclera anicteric, conjunctiva clear. NECK: Normal ROM, supple without lymphadenopathy, JVD, or masses. ABDOMEN: Soft, nontender, not distended, normoactive bowel sounds, no guarding, no rebound, no masses. No organomegaly. MUSCULOSKELETAL: Normal ROM at all joints. No bony deformities or tenderness. No CVA tenderness. UPPER EXTREMITIES: 2+ pulses, warm, well-perfused. No cyanosis. Cap refill <2 seconds. No peripheral edema. LOWER EXTREMITIES: 2+ pulses, warm, well-perfused. No calf tenderness. No perip heral edema. NEUROLOGICAL: Normal speech, gait not observed. PSYCH: Cooperative. Good eye contact. Appropriate mood and affect. SKIN: ABSSSI of the right medial upper thigh not involving the scrotum w/ttp; resolved ABSSSI of the right lower abdominal wall w/o active fluctuance and w/ resolving erythema. Vital Signs Temperature 98 F 02/16/20 10:57 Pulse Rate 88 02/16/20 10:57 Respiratory Rate 18 02/16/20 10:57 Blood Pressure 138/85 02/16/20 10:57 O2 Sat by Pulse Oximetry (%) 98 02/16/20 10:57 Lab Results WBC 7.4 K/mm3 (4.0-10.0) 02/16/20 05:55 RBC 4.01 M/mm3 (4.00-5.60) 02/16/20 05:55 Hgb 12.2 GM/dL (11.7-16.9) 02/16/20 05:55 Hct 36.5 % (35.4-49) D 02/16/20 05:55 MCV 91.0 fl (80-96) 02/16/20 05:55 MCHC 33.4 g/dl (32.0-35.9) 02/16/20 05:55 RDW 13.5 % (11.9-15.9) 02/16/20 05:55 Plt Count 280 K/MM3 (134-434) D 02/16/20 05:55 INR 1.01 (0.83-1.09) 02/15/20 20:15 Sodium 136 mmol/L (136-145) 02/16/20 05:55 Potassium 3.8 mmol/L (3.5-5.1) 02/16/20 05:55 Chloride 101 mmol/L (98-107) 02/16/20 05:55 Carbon Dioxide 26 mmol/L (21-32) 02/16/20 05:55 Anion Gap 8 MMOL/L (8-16) 02/16/20 05:55 BUN 9.2 mg/dL (7-18) 02/16/20 05:55 Creatinine 0.8 mg/dL (0.55-1.3) 02/16/20 05:55 Random Glucose 327 mg/dL (74-106) H 02/16/20 05:55 Calcium 8.2 mg/dL (8.5-10.1) L 02/16/20 05:55 IMP: ABSSSI of the right medial thigh and groin PLAN: I and D 02/17/2020; r/b/t/a's d/w the patient who understands the site will be left open to heal by secondary intention. Dakota Handy MD FACS
[2020-02-16] MEDS ORDERED: ACETAMINOPHEN 325 MG TABLET (FP) PO ONE (15:15)
[2020-02-16] MEDS: AZTREONAM 2 GM in DEXTROSE 5%-WATER 100 ML IVPB SCH ×2 (15:23→18:41)
[2020-02-16] MEDS ORDERED: MORPHINE SULFATE 2 MG/ML VIAL IVPUSH PRN (15:34)
--- NOTE | 2020-02-16 17:03 | EKG ---
Test Reason : Blood Pressure : / mmHG Vent. Rate : 115 BPM Atrial Rate : 115 BPM P-R Int : 172 ms QRS Dur : 074 ms QT Int : 318 ms P-R-T Axes : 027 -52 047 degrees QTc Int : 439 ms SINUS TACHYCARDIA LEFT AXIS DEVIATION INFERIOR INFARCT , AGE UNDETERMINED ANTEROLATERAL INFARCT , AGE UNDETERMINED ABNORMAL ECG NO PREVIOUS ECGS AVAILABLE Confirmed by ELE LOU MD ([id number]) on 02/16/2020 5:02:32 PM Referred By: Confirmed By:ELE LOU MD
[2020-02-16] MEDS ORDERED: PT OWN MED DRAWER 7, Y5N ONE (18:08)
[2020-02-16] MEDS ORDERED: INSULIN (NOVOLOG) ASPART 100 UNITS/ML 10ML VIAL ONE (20:42)
[2020-02-17] MEDS: AZTREONAM 2 GM in DEXTROSE 5%-WATER 100 ML IVPB SCH ×3 (01:56→17:10)
[2020-02-17] MEDS: INSULIN (NOVOLOG) ASPART 100 UNITS/ML 10ML VIAL SQ SCH ×3 (06:13→17:10)
[2020-02-17] MEDS: INSULIN (LEVEMIR) 100 UNITS/ML UNITS SQ SCH (06:13)
[2020-02-17] MEDS: INSULIN SLIDING SCALE (NOVOLOG) 1 VIAL SQ SCH ×4 (06:14→21:01)
[2020-02-17 07:09] LABS: BASO % 0.7 % (0-2.0); EOS % 2.4 % (0-4.5); HEMATOCRIT 38.3 % (35.4-49); HEMOGLOBIN 12.8 GM/dL (11.7-16.9); LYMPH % 32.7 % (8-40); MCH 30.4 pg (25.7-33.7); MCHC 33.4 g/dl (32.0-35.9); MEAN CELL VOLUME 90.9 fl (80-96); MEAN PLT VOLUME 7.2 fl (7.5-11.1); MONO % 8.1 % (3.8-10.2); NEUT % 56.1 % (42.8-82.8); PLATELET COUNT 265 K/MM3 (134-434); RBC 4.22 M/mm3 (4.00-5.60); RDW 13.5 % (11.9-15.9); WHITE BLOOD COUNT 6.5 K/mm3 (4.0-10.0)
[2020-02-17] MEDS ORDERED: LIDOCAINE HCL 1%, 10 MG/ML (20ML VIAL) ONE (07:27)
[2020-02-17 07:38] LABS: ALBUMIN 2.4 g/dl (3.4-5.0); BILIRUBIN,TOTAL 0.4 mg/dL (0.2-1); BLOOD UREA NITROGEN 4.5 mg/dL (7-18); CALCIUM 8.1 mg/dL (8.5-10.1); CREATININE 0.5 mg/dL (0.55-1.3); MAGNESIUM 1.8 mg/dL (1.8-2.4); POTASSIUM 3.7 mmol/L (3.5-5.1); TOT PROT 5.7 g/dl (6.4-8.2)
[2020-02-17] MEDS ORDERED: MIDAZOLAM HCL 2 MG/2 ML SINGLE DOSE VIAL ONE ×2 (07:58)
[2020-02-17] MEDS ORDERED: PROPOFOL 20 ML ONE (07:58)
[2020-02-17] MEDS ORDERED: SUCCINYLCHOLINE CHLORIDE 200 MG/10 ML SYRINGE ONE (08:00)
[2020-02-17] MEDS ORDERED: ceFAZolin 2 GRAM PREMIX BAG IVPB ONE (08:40)
--- NOTE | 2020-02-17 09:37 | OP ---
Operative Note - Note: Operative Date: 02/17/20 Pre-Operative Diagnosis: soft tissue infection right upper medial thigh/groin crease Operation: incision and drainage Findings: soft tissue abscess; probable infected sebaceous cyst. Post-Operative Diagnosis: Same as Pre-op Surgeon: Dakota Handy Anesthesiologist/LEGAL SERVICES PROFESSIONAL: Ghassan Khan Anesthesia: Spinal Estimated Blood Loss (mls): 10 Drains & Tubes with Location: 1" Iodoform packing
[2020-02-17] MEDS: VANCOMYCIN HCL 1,500 MG in DEXTROSE 5%-WATER - 500 ML IVPB SCH ×2 (10:58→22:02)
[2020-02-17] MEDS: LOSARTAN POTASSIUM 50 MG TABLET PO SCH (13:03)
--- NOTE | 2020-02-17 15:26 | PN ---
Physical Exam: SUBJECTIVE: Patient seen and examined. OBJECTIVE: Vital Signs Period Temp Pulse Resp BP Sys/Almaguer Pulse Ox Last 24 Hr 98.1 F-99 F 85-100 12-20 122-154/71-91 96-100 GENERAL: The patient is awake, alert, and fully oriented, in no acute distress. HEAD: Normal with no signs of trauma. EYES: PERRL, extraocular movements intact, sclera anicteric, conjunctiva clear. No ptosis. ENT: Ears normal, nares patent, oropharynx clear without exudates, moist mucous membranes. NECK: Trachea midline, full range of motion, supple. LUNGS: Breath sounds equal, clear to auscultation bilaterally, no wheezes, no crackles, no accessory muscle use. HEART: Regular rate and rhythm, S1, S2 without murmur, rub or gallop. ABDOMEN: Soft, nontender, nondistended, normoactive bowel sounds, no guarding, no rebound, no hepatosplenomegaly, no masses. EXTREMITIES: 2+ pulses, warm, well-perfused, no edema. NEUROLOGICAL: Cranial nerves II through XII grossly intact. Normal speech, gait not observed. PSYCH: Normal mood, normal affect. SKIN: R groin fluid collection drained, dressings in place. Laboratory Results - last 24 hr 02/16/20 02/16/20 02/16/20 01:07 17:27 20:47 WBC RBC Hgb Hct MCV MCH MCHC RDW Plt Count MPV Absolute Neuts (auto) Neutrophils % Lymphocytes % Monocytes % Eosinophils % Basophils % Nucleated RBC % Sodium Potassium Chloride Carbon Dioxide Anion Gap BUN Creatinine Est GFR (CKD-EPI)AfAm Est GFR (CKD-EPI)NonAf POC Glucometer 277 228 Random Glucose Calcium Phosphorus Magnesium Total Bilirubin AST ALT Alkaline Phosphatase Total Protein Albumin TSH COVID-19 (BRIGITTE) Not detected 02/17/20 02/17/20 02/17/20 05:35 06:05 06:05 WBC 6.5 RBC 4.22 Hgb 12.8 Hct 38.3 MCV 90.9 MCH 30.4 MCHC 33.4 RDW 13.5 Plt Count 265 MPV 7.2 L Absolute Neuts (auto) 3.6 Neutrophils % 56.1 Lymphocytes % 32.7 Monocytes % 8.1 Eosinophils % 2.4 Basophils % 0.7 Nucleated RBC % 0 Sodium 136 Potassium 3.7 Chloride 101 Carbon Dioxide 28 Anion Gap 7 L BUN 4.5 L Creatinine 0.5 L Est GFR (CKD-EPI)AfAm 148.52 Est GFR (CKD-EPI)NonAf 128.14 POC Glucometer 244 Random Glucose 254 H Calcium 8.1 L Phosphorus 4.0 Magnesium 1.8 Total Bilirubin 0.4 AST 32 ALT 30 Alkaline Phosphatase 63 Total Protein 5.7 L Albumin 2.4 L TSH 1.26 COVID-19 ([facility]) 02/17/20 02/17/20 09:58 11:49 WBC RBC Hgb Hct MCV MCH MCHC RDW Plt Count MPV Absolute Neuts (auto) Neutrophils % Lymphocytes % Monocytes % Eosinophils % Basophils % Nucleated RBC % Sodium Potassium Chloride Carbon Dioxide Anion Gap BUN Creatinine Est GFR (CKD-EPI)AfAm Est GFR (CKD-EPI)NonAf POC Glucometer 288 281 Random Glucose Calcium Phosphorus Magnesium Total Bilirubin AST ALT Alkaline Phosphatase Total Protein Albumin TSH COVID-19 ([facility]ITTE) Active Medications Generic Name Dose Route Start Last Admin Trade Name Freq PRN Reason Stop Dose Admin Enoxaparin Sodium 40 mg 02/17/20 22:00 Lovenox - SQ BID [facility] Aztreonam 2 gm/ Dextrose 100 mls @ 100 mls/hr 02/17/20 18:00 IVPB Q8H-IV [facility] Protocol Metronidazole 500 mg in 100 mls @ 100 mls/hr 02/17/20 15:00 02/17/20 15:01 Flagyl 500mg Premixed Ivpb - IVPB 100 mls/hr Q6H-IV [facility]ACE[facility] Administration Vancomycin HCl 1,500 mg/ 500 mls @ 250 mls/hr 02/17/20 22:00 Dextrose IVPB BID [facility] Protocol Lactated Ringer's 1,000 mls @ 125 mls/hr 02/17/20 10:30 Lactated Ringers Solution IV ASDIR [facility] Insulin Aspart 5 units 02/17/20 11:00 02/17/20 12:00 Novolog Vial SQ 5 units TIDAC [facility] Administration Insulin Aspart 1 vial 02/17/20 11:00 02/17/20 12:00 Novolog Vial Sliding Scale - SQ 6 units ACHS [facility] Administration Protocol Insulin Detemir 20 units 02/17/20 22:00 Levemir Vial SQ BID@0700,2200 [facility] Losartan Potassium 50 mg 02/18/20 10:00 Cozaar - PO DAILY [facility] Oxycodone HCl 5 mg 02/17/20 10:28 Roxicodone - PO Q4H PRN PAIN LEVEL 1-5 ASSESSMENT/PLAN: Pt is a 49 year old male with PMHx of HTN presenting to the ED with skin swelling and abscess not responding to outpatient antibiotic therapy, admitted for R groin cellulitis #Right groin cellulitis -surgery consulted (Dr. Handy); s/p I&D in AM -received clindamycin and bactrim outpatient, no improvement of symptoms per pt -in ED, received vancomycin, levaquin and flagyl -ID consulted (PCN allergy), switched to vancomycin, aztreonam and flagyl #New onset DM -blood glucose on admission 487, A1c 14.1 -started on Levemir 20u BID, Novolog 5u TIDAC and SSI -ordered UA, Uprotein:Database Analyst, lipid profile, microalbumin, lipid panel -continue Losartan, as will be renal protective in DM pt -Discussed weight loss, diet and exercise, and DM education -pseudohypernatremia on admission due to elevated bG #Hx of HTN -continue home Losartan FEN No standing fluids Monitor electrolytes Diabetic sodium diet PPx Lovenox 40mg BID Dispo Admitted to med surg. New onset DM, R groin cellulitis. On vanc, flagyl, aztreonam. ATTENDING PHYSICIAN STATEMENT I saw and evaluated the patient. I reviewed the resident's note and discussed the case with the resident. I agree with the resident's findings and plan as documented. SUBJECTIVE: OBJECTIVE: ASSESSMENT AND PLAN:
[2020-02-17] MEDS: LACTATED RINGERS SOLUTION 1,000 ML IV SCH (16:47)
--- NOTE | 2020-02-17 17:03 | PN ---
Teaching Attending Note Name of Resident: Sanjiv Servin ATTENDING PHYSICIAN STATEMENT I saw and evaluated the patient. I reviewed the resident's note and discussed the case with the resident. I agree with the resident's findings and plan as documented. SUBJECTIVE: Feeling well post I and D. No fever/chills. OBJECTIVE: Afebrile, Hemodynamically Stable Last Vital Signs Temp Pulse Resp BP Pulse Ox 98.5 F 100 H 20 122/71 96 02/17/20 14:10 02/17/20 14:10 02/17/20 14:10 02/17/20 14:10 02/17/20 11:00 HEENT - Atraumatic, Normocephalic. Heart - S1, S2, RRR Lungs - clear to auscultation Abdomen - High BMI. Soft, non-tender. Bowel Sounds normal. Extremities - R inner thigh/groin surgical site dressed. No surrounding tenderness/erythema. No calf tenderness. Neuro - AAO x 3. Tone/Power normal. Laboratory Results - last 24 hr 02/16/20 02/16/20 02/16/20 01:07 17:27 20:47 WBC RBC Hgb Hct MCV MCH MCHC RDW Plt Count MPV Absolute Neuts (auto) Neutrophils % Lymphocytes % Monocytes % Eosinophils % Basophils % Nucleated RBC % Sodium Potassium Chloride Carbon Dioxide Anion Gap BUN Creatinine Est GFR (CKD-EPI)AfAm Est GFR (CKD-EPI)NonAf POC Glucometer 277 228 Random Glucose Calcium Phosphorus Magnesium Total Bilirubin AST ALT Alkaline Phosphatase Total Protein Albumin TSH COVID-19 ([facility]ITTE) Not detected 02/17/20 02/17/20 02/17/20 05:35 06:05 06:05 WBC 6.5 RBC 4.22 Hgb 12.8 Hct 38.3 MCV 90.9 MCH 30.4 MCHC 33.4 RDW 13.5 Plt Count 265 MPV 7.2 L Absolute Neuts (auto) 3.6 Neutrophils % 56.1 Lymphocytes % 32.7 Monocytes % 8.1 Eosinophils % 2.4 Basophils % 0.7 Nucleated RBC % 0 Sodium 136 Potassium 3.7 Chloride 101 Carbon Dioxide 28 Anion Gap 7 L BUN 4.5 L Creatinine 0.5 L Est GFR (CKD-EPI)AfAm 148.52 Est GFR (CKD-EPI)NonAf 128.14 POC Glucometer 244 Random Glucose 254 H Calcium 8.1 L Phosphorus 4.0 Magnesium 1.8 Total Bilirubin 0.4 AST 32 ALT 30 Alkaline Phosphatase 63 Total Protein 5.7 L Albumin 2.4 L TSH 1.26 COVID-19 ([facility]IGITTE) 02/17/20 02/17/20 02/17/20 09:58 11:49 16:46 WBC RBC Hgb Hct MCV MCH MCHC RDW Plt Count MPV Absolute Neuts (auto) Neutrophils % Lymphocytes % Monocytes % Eosinophils % Basophils % Nucleated RBC % Sodium Potassium Chloride Carbon Dioxide Anion Gap BUN Creatinine Est GFR (CKD-EPI)AfAm Est GFR (CKD-EPI)NonAf POC Glucometer 288 281 286 Random Glucose Calcium Phosphorus Magnesium Total Bilirubin AST ALT Alkaline Phosphatase Total Protein Albumin TSH COVID-19 (BRIGITTE) Current Medications Generic Name Dose Route Start Last Admin Trade Name Freq PRN Reason Stop Dose Admin Enoxaparin Sodium 40 mg 02/17/20 22:00 Lovenox - SQ BID TRACEY Aztreonam 2 gm/ Dextrose 100 mls @ 100 mls/hr 02/17/20 18:00 IVPB Q8H-IV TRACEY Protocol Metronidazole 500 mg in 100 mls @ 100 mls/hr 02/17/20 15:00 02/17/20 15:01 Flagyl 500mg Premixed Ivpb - IVPB 100 mls/hr Q6H-IV TRACEY Administration Vancomycin HCl 1,500 mg/ 500 mls @ 250 mls/hr 02/17/20 22:00 Dextrose IVPB BID TRACEY Protocol Lactated Ringer's 1,000 mls @ 125 mls/hr 02/17/20 10:30 02/17/20 16:47 Lactated Ringers Solution IV Not Given ASDIR [facility] Insulin Aspart 5 units 02/17/20 11:00 02/17/20 12:00 Novolog Vial SQ 5 units TIDAC [facility] Administration Insulin Aspart 1 vial 02/17/20 11:00 02/17/20 12:00 Novolog Vial Sliding Scale - SQ 6 units ACHS TRACEY Administration Protocol Insulin Detemir 20 units 02/17/20 22:00 Levemir Vial SQ BID@0700,2200 [facility] Losartan Potassium 50 mg 02/18/20 10:00 Cozaar - PO DAILY TRACEY Oxycodone HCl 5 mg 02/17/20 10:28 Roxicodone - PO Q4H PRN PAIN LEVEL 1-5 Home Medications Medication Instructions Recorded Losartan Potassium [Cozaar -] 50 mg PO DAILY 07/31/14 ASSESSMENT AND PLAN: 49 year old male with HTN, Morbid Obesity, presented to ED due to R groin area cellulits/abscess, not responding to outpatient Abx therapy with Clindamycin and Bactrim. CT A/P - Cellulitis R inguinal/groin region. 1. R Groin Cellulitits/Abscess Immediately post-op s/p I and D - Surgical Cx pending. Prior Wound Cx - Strep agalactiae Continue Azactam/Vanco/Flagyl 2. DM 2 - newly diagnosed, A1C 14 Started on Levemir, Novolog sliding scale. Endocrinology consulted. 3. HTN - Continue Losartan. DVT Px - Lovenox SQ
[2020-02-17] MEDS: ENOXAPARIN NA (PORCINE) 40 MG/0.4 ML DISP.SYRIN SQ SCH (21:02)
[2020-02-17] MEDS ORDERED: INSULIN (LEVEMIR) 100 UNITS/ML UNITS SQ SCH ×2 (22:00→22:32)
[2020-02-17] MEDS ORDERED: INSULIN SLIDING SCALE (NOVOLOG) 1 VIAL SQ SCH (22:30)
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
--- NOTE | 2020-02-17 23:42 | PN ---
Progress Note, Physician Chief Complaint: S/P I&D R GROIN ABSCESS NO C/O PAIN NO FEVER/ CHILLS CULTURES PENDING AFEBRILE TOLERATING ANTIBIOTICS - Current Medication List Current Medications: Active Medications Enoxaparin Sodium (Lovenox -) 40 mg SQ BID [facility] Last Admin: 02/17/20 21:02 Dose: 40 mg Documented by: Aztreonam 2 gm/ Dextrose 100 mls @ 100 mls/hr IVPB Q8H-IV [facility]ACEY; Protocol Last Admin: 02/17/20 17:10 Dose: 100 mls/hr Documented by: Metronidazole (Flagyl 500mg Premixed Ivpb -) 500 mg in 100 mls @ 100 mls/hr IVPB Q6H-IV TRACEY Last Admin: 02/17/20 20:13 Dose: 100 mls/hr Documented by: Vancomycin HCl 1,500 mg/ (Dextrose) 500 mls @ 250 mls/hr IVPB BID [facility]ACE[facility]; Protocol Last Admin: 02/17/20 22:02 Dose: 250 mls/hr Documented by: Lactated Ringer's (Lactated Ringers Solution) 1,000 mls @ 125 mls/hr IV ASDIR [facility] Last Admin: 02/17/20 16:47 Dose: Not Given Documented by: Insulin Aspart (Novolog Vial Sliding Scale -) 1 vial SQ ACHS [facility]; Protocol Insulin Aspart (Novolog Vial) 6 units SQ TIDAC [facility] Insulin Detemir (Levemir Vial) 27 units SQ BID@0700,2200 [facility] Losartan Potassium (Cozaar -) 50 mg PO DAILY [facility] Oxycodone HCl (Roxicodone -) 5 mg PO Q4H PRN PRN Reason: PAIN LEVEL 1-5 - Objective Vital Signs: Vital Signs Temperature 98.1 F 02/17/20 21:00 Pulse Rate 98 H 02/17/20 21:00 Respiratory Rate 20 02/17/20 21:00 Blood Pressure 139/81 02/17/20 21:00 O2 Sat by Pulse Oximetry (%) 96 02/17/20 21:00 Constitutional: Yes: No Distress, Obese Cardiovascular: Yes: Regular Rate and Rhythm, S1, S2 Respiratory: Yes: CTA Bilaterally Gastrointestinal: Yes: Normal Bowel Sounds, Soft, Other (DRESSING IN PLACE R GROIN) Labs: CBC, BMP 02/17/20 06:05 02/17/20 06:05 INR, PTT INR 1.01 (0.83-1.09) 02/15/20 20:15 Assessment/Plan S/P I7D SOFT TISSUE ABSCESS R GROIN R/O SEPSIS PCN ALLERGY AWAIT C/S CONTINUE VANCOMYCIN/AZTREONAM/FLAGYL
[2020-02-18] MEDS: AZTREONAM 2 GM in DEXTROSE 5%-WATER 100 ML IVPB SCH ×3 (01:16→17:24)
[2020-02-18] MEDS: INSULIN (LEVEMIR) 100 UNITS/ML UNITS SQ SCH ×2 (06:05→22:01)
[2020-02-18] MEDS: INSULIN SLIDING SCALE (NOVOLOG) 1 VIAL SQ SCH ×4 (06:05→22:01)
[2020-02-18] MEDS: INSULIN (NOVOLOG) ASPART 100 UNITS/ML 10ML VIAL SQ SCH ×3 (06:06→17:22)
[2020-02-18] MEDS ORDERED: PT OWN MED DRAWER 7, Y5N ONE ×4 (06:17→23:08)
[2020-02-18 07:12] LABS: BASO % 0.7 % (0-2.0); EOS % 1.2 % (0-4.5); HEMATOCRIT 37.1 % (35.4-49); HEMOGLOBIN 12.3 GM/dL (11.7-16.9); LYMPH % 34.3 % (8-40); MCH 30.2 pg (25.7-33.7); MCHC 33.2 g/dl (32.0-35.9); MEAN PLT VOLUME 7.1 fl (7.5-11.1); MONO % 6.6 % (3.8-10.2); NEUT % 57.2 % (42.8-82.8); PLATELET COUNT 268 K/MM3 (134-434); RBC 4.08 M/mm3 (4.00-5.60); RDW 13.4 % (11.9-15.9); WHITE BLOOD COUNT 8.1 K/mm3 (4.0-10.0)
[2020-02-18 07:39] LABS: ALBUMIN 2.3 g/dl (3.4-5.0); BILIRUBIN,TOTAL 0.4 mg/dL (0.2-1); BLOOD UREA NITROGEN 8.1 mg/dL (7-18); CALCIUM 8.3 mg/dL (8.5-10.1); CREATININE 0.6 mg/dL (0.55-1.3); MAGNESIUM 1.9 mg/dL (1.8-2.4); PHOSPHOROUS 3.4 mg/dL (2.5-4.9); POTASSIUM 3.7 mmol/L (3.5-5.1); TOT PROT 5.7 g/dl (6.4-8.2)
--- NOTE | 2020-02-18 09:21 | PN ---
Physical Exam: SUBJECTIVE: Patient seen and examined No complaints this AM. Pt denies fevers, chills, groin pain. OBJECTIVE: Vital Signs Temperature 97.7 F 02/18/20 06:00 Pulse Rate 85 02/18/20 06:00 Respiratory Rate 20 02/18/20 06:00 Blood Pressure 127/85 02/18/20 06:00 O2 Sat by Pulse Oximetry (%) 98 02/18/20 06:00 GENERAL: The patient is awake, alert, and fully oriented, in no acute distress. Resp: unlabored breathing on RA R groin: s/p I&D, packing removing incision c/d/i with no purulence or drainage expressed, warm SKIN: Warm, dry, normal turgor, no rashes or lesions noted Laboratory Results - last 24 hr 02/17/20 02/17/20 02/17/20 09:58 11:49 16:46 WBC RBC Hgb Hct MCV MCH MCHC RDW Plt Count MPV Absolute Neuts (auto) Neutrophils % Lymphocytes % Monocytes % Eosinophils % Basophils % Nucleated RBC % Sodium Potassium Chloride Carbon Dioxide Anion Gap BUN Creatinine Est GFR (CKD-EPI)AfAm Est GFR (CKD-EPI)NonAf POC Glucometer 288 281 286 Random Glucose Calcium Phosphorus Magnesium Total Bilirubin AST ALT Alkaline Phosphatase Total Protein Albumin 02/17/20 02/18/20 02/18/20 20:38 05:29 06:40 WBC 8.1 RBC 4.08 Hgb 12.3 Hct 37.1 MCV 91.0 MCH 30.2 MCHC 33.2 RDW 13.4 Plt Count 268 MPV 7.1 L Absolute Neuts (auto) 4.6 Neutrophils % 57.2 Lymphocytes % 34.3 Monocytes % 6.6 Eosinophils % 1.2 Basophils % 0.7 Nucleated RBC % 0 Sodium Potassium Chloride Carbon Dioxide Anion Gap BUN Creatinine Est GFR (CKD-EPI)AfAm Est GFR (CKD-EPI)NonAf POC Glucometer 321 255 Random Glucose Calcium Phosphorus Magnesium Total Bilirubin AST ALT Alkaline Phosphatase Total Protein Albumin 02/18/20 06:40 WBC RBC Hgb Hct MCV MCH MCHC RDW Plt Count MPV Absolute Neuts (auto) Neutrophils % Lymphocytes % Monocytes % Eosinophils % Basophils % Nucleated RBC % Sodium 135 L Potassium 3.7 Chloride 99 Carbon Dioxide 30 Anion Gap 6 L BUN 8.1 Creatinine 0.6 Est GFR (CKD-EPI)AfAm 137.80 Est GFR (CKD-EPI)NonAf 118.89 POC Glucometer Random Glucose 269 H Calcium 8.3 L Phosphorus 3.4 Magnesium 1.9 Total Bilirubin 0.4 AST 17 ALT 25 Alkaline Phosphatase 69 Total Protein 5.7 L Albumin 2.3 L Active Medications Generic Name Dose Route Start Last Admin Trade Name Freq PRN Reason Stop Dose Admin Enoxaparin Sodium 40 mg 02/17/20 22:00 02/17/20 21:02 Lovenox - SQ 40 mg BID [facility] Administration Aztreonam 2 gm/ Dextrose 100 mls @ 100 mls/hr 02/17/20 18:00 02/18/20 01:16 IVPB 100 mls/hr Q8H-IV [facility]ACE[facility] Administration Protocol Metronidazole 500 mg in 100 mls @ 100 mls/hr 02/17/20 15:00 02/18/20 02:13 Flagyl 500mg Premixed Ivpb - IVPB 100 mls/hr Q6H-IV [facility]ACE[facility] Administration Vancomycin HCl 1,500 mg/ 500 mls @ 250 mls/hr 02/17/20 22:00 02/17/20 22:02 Dextrose IVPB 250 mls/hr BID [facility] Administration Protocol Lactated Ringer's 1,000 mls @ 125 mls/hr 02/17/20 10:30 02/17/20 16:47 Lactated Ringers Solution IV Not Given ASDIR [facility] Insulin Aspart 1 vial 02/17/20 22:34 02/18/20 06:05 Novolog Vial Sliding Scale - SQ 8 units ACHS [facility] Administration Protocol Insulin Aspart 6 units 02/17/20 22:35 02/18/20 06:06 Novolog Vial SQ 6 units TIDAC [facility] Administration Insulin Detemir 27 units 02/17/20 22:48 02/18/20 06:05 Levemir Vial SQ 27 units BID@0700,2200 [facility] Administration Losartan Potassium 50 mg 02/18/20 10:00 Cozaar - PO DAILY [facility] Oxycodone HCl 5 mg 02/17/20 10:28 Roxicodone - PO Q4H PRN PAIN LEVEL 1-5 ASSESSMENT/PLAN: 49yoM PMH HTN presented w/pain and swelling and d/c from his right groin after failed outpatient for abscess of the right groin. Now s/p I&D of Right medial thigh on 02/16 with the following intraop findings: soft tissue abscess; probable infected sebaceous cyst. Doing well postop. f/u OR wound cultures continue abx pain control PRN labs: WBC 8.1, H&H stable Vitals: afebrile No further surgical intervention warranted at this time; reconsult PRN continue local wound care: 1" Iodoform packing into R medial thigh daily VNS rest of care per primary team d/w Dr. Handy, plan as above
[2020-02-18] MEDS: ENOXAPARIN NA (PORCINE) 40 MG/0.4 ML DISP.SYRIN SQ SCH ×2 (09:54→22:01)
[2020-02-18] MEDS: LOSARTAN POTASSIUM 50 MG TABLET PO SCH (09:58)
--- NOTE | 2020-02-18 11:11 | PN ---
Progress Note, Physician Chief Complaint: S/P I&D R GROIN/MEDIAL THIGH ABSCESS C/O PAIN NO FEVER/ CHILLS CULTURES PENDING AFEBRILE TOLERATING ANTIBIOTICS - Current Medication List Current Medications: Active Medications Enoxaparin Sodium (Lovenox -) 40 mg SQ BID [facility] Last Admin: 02/18/20 09:54 Dose: 40 mg Documented by: Aztreonam 2 gm/ Dextrose 100 mls @ 100 mls/hr IVPB Q8H-IV [facility]; Protocol Last Admin: 02/18/20 09:54 Dose: 100 mls/hr Documented by: Metronidazole (Flagyl 500mg Premixed Ivpb -) 500 mg in 100 mls @ 100 mls/hr IVPB Q6H-IV [facility] Last Admin: 02/18/20 09:53 Dose: 100 mls/hr Documented by: Vancomycin HCl 1,500 mg/ (Dextrose) 500 mls @ 250 mls/hr IVPB BID [facility]; Protocol Last Admin: 02/17/20 22:02 Dose: 250 mls/hr Documented by: Lactated Ringer's (Lactated Ringers Solution) 1,000 mls @ 125 mls/hr IV ASDIR [facility] Last Admin: 02/17/20 16:47 Dose: Not Given Documented by: Insulin Aspart (Novolog Vial Sliding Scale -) 1 vial SQ ACHS [facility]; Protocol Last Admin: 02/18/20 06:05 Dose: 8 units Documented by: Insulin Aspart (Novolog Vial) 6 units SQ TIDAC [facility] Last Admin: 02/18/20 06:06 Dose: 6 units Documented by: Insulin Detemir (Levemir Vial) 27 units SQ BID@0700,2200 [facility] Last Admin: 02/18/20 06:05 Dose: 27 units Documented by: Losartan Potassium (Cozaar -) 50 mg PO DAILY [facility] Last Admin: 02/18/20 09:58 Dose: 50 mg Documented by: Oxycodone HCl (Roxicodone -) 5 mg PO Q4H PRN PRN Reason: PAIN LEVEL 1-5 - Objective Vital Signs: Vital Signs Temperature 97.7 F 02/18/20 06:00 Pulse Rate 85 02/18/20 06:00 Respiratory Rate 20 02/18/20 06:00 Blood Pressure 127/85 02/18/20 06:00 O2 Sat by Pulse Oximetry (%) 98 02/18/20 06:00 Constitutional: Yes: No Distress, Obese Eyes: Yes: Conjunctiva Clear Cardiovascular: Yes: Regular Rate and Rhythm, S1, S2 Respiratory: Yes: CTA Bilaterally Gastrointestinal: Yes: Normal Bowel Sounds, Soft. No: Tenderness Extremities: Yes: Other (INCISIONAL WOUND PROXIMAL MEDIAL THIGH WITH BLOODY DRAINAGE) Labs: CBC, BMP 02/18/20 06:40 02/18/20 06:40 INR, PTT INR 1.01 (0.83-1.09) 02/15/20 20:15 Assessment/Plan S/P I&D SOFT TISSUE ABSCESS R GROIN/THIGH R/O SEPSIS MORBID OBESITY NEW ONSET DIABETES PCN ALLERGY AWAIT C/S CONTINUE VANCOMYCIN/AZTREONAM/FLAGYL
--- NOTE | 2020-02-18 11:16 | OP ---
DATE OF OPERATION: 02/17/2020 PREOPERATIVE DIAGNOSIS: Soft tissue infection of the right upper medial thigh/groin crease. POSTOPERATIVE DIAGNOSIS: Soft tissue infection of the right upper medial thigh/groin crease. PROCEDURE: Incision and drainage of soft tissue infection of the right upper medial thigh/groin crease. SURGEON: Dakota Handy MD ANESTHESIA: Spinal. OPERATIVE FINDINGS: There was a soft tissue abscess in the right upper medial thigh and groin crease clinically consistent with an infected sebaceous cyst. The rest of the findings were unremarkable. PROCEDURE: The patient was placed on the operating room table in the dorsal lithotomy position after the placement of spinal anesthesia. The area in question was prepped with Betadine and draped in a sterile fashion. A timeout was taken and then incision made with a scalpel, taken down through skin and subcutaneous tissue. Purulent drainage was sent for culture and sensitivity. All loculations were broken up using blunt dissection. The wound was copiously irrigated with a mixture of saline and peroxide followed by saline alone. Hemostasis was secured with electrocautery and then the wound packed with 1-inch Iodoform gauze and dry sterile dressings were placed and the procedure terminated at this point, and the patient transferred to the postanesthesia care unit in stable condition awake and alert. ESTIMATED BLOOD LOSS: 10 mL REPLACEMENTS: Crystalloid. DRAINS: Iodoform packing. SPECIMEN: Purulent drainage to microbiology for culture and sensitivity. I, Dakota Handy, was physically present in the operating room from the time the patient was placed on the operating table until he was transferred to the postanesthesia care unit in my accompaniment. Dakota Handy MD /[id number] MTDD
[2020-02-18] MEDS: VANCOMYCIN HCL 1,500 MG in DEXTROSE 5%-WATER - 500 ML IVPB SCH ×2 (13:37→23:00)
--- NOTE | 2020-02-18 14:36 | PN ---
Physical Exam: SUBJECTIVE: Patient seen and examined. Denies OBJECTIVE: Vital Signs Period Temp Pulse Resp BP Sys/Almaguer Pulse Ox Last 24 Hr 97.7 F-98.1 F 85-98 18-20 109-139/64-85 96-98 GENERAL: The patient is awake, alert, and fully oriented, in no acute distress. HEAD: Normal with no signs of trauma. EYES: PERRL, extraocular movements intact, sclera anicteric, conjunctiva clear. No ptosis. ENT: Ears normal, nares patent, oropharynx clear without exudates, moist mucous membranes. NECK: Trachea midline, full range of motion, supple. LUNGS: Breath sounds equal, clear to auscultation bilaterally, no wheezes, no crackles, no accessory muscle use. HEART: Regular rate and rhythm, S1, S2 without murmur, rub or gallop. ABDOMEN: Soft, nontender, nondistended, normoactive bowel sounds, no guarding, no rebound, no hepatosplenomegaly, no masses. EXTREMITIES: 2+ pulses, warm, well-perfused, no edema. NEUROLOGICAL: Cranial nerves II through XII grossly intact. Normal speech, gait not observed. PSYCH: Normal mood, normal affect. SKIN: R groin fluid collection drained, dressings in place. Packing replaced by surg. Laboratory Results - last 24 hr 02/17/20 02/17/20 02/18/20 16:46 20:38 05:29 WBC RBC Hgb Hct MCV MCH MCHC RDW Plt Count MPV Absolute Neuts (auto) Neutrophils % Lymphocytes % Monocytes % Eosinophils % Basophils % Nucleated RBC % Sodium Potassium Chloride Carbon Dioxide Anion Gap BUN Creatinine Est GFR (CKD-EPI)AfAm Est GFR (CKD-EPI)NonAf POC Glucometer 286 321 255 Random Glucose Calcium Phosphorus Magnesium Total Bilirubin AST ALT Alkaline Phosphatase Total Protein Albumin Vancomycin Pre-Dose 02/18/20 02/18/20 02/18/20 06:40 06:40 11:15 WBC 8.1 RBC 4.08 Hgb 12.3 Hct 37.1 MCV 91.0 MCH 30.2 MCHC 33.2 RDW 13.4 Plt Count 268 MPV 7.1 L Absolute Neuts (auto) 4.6 Neutrophils % 57.2 Lymphocytes % 34.3 Monocytes % 6.6 Eosinophils % 1.2 Basophils % 0.7 Nucleated RBC % 0 Sodium 135 L Potassium 3.7 Chloride 99 Carbon Dioxide 30 Anion Gap 6 L BUN 8.1 Creatinine 0.6 Est GFR (CKD-EPI)AfAm 137.80 Est GFR (CKD-EPI)NonAf 118.89 POC Glucometer Random Glucose 269 H Calcium 8.3 L Phosphorus 3.4 Magnesium 1.9 Total Bilirubin 0.4 AST 17 ALT 25 Alkaline Phosphatase 69 Total Protein 5.7 L Albumin 2.3 L Vancomycin Pre-Dose 3.4 L 02/18/20 11:55 WBC RBC Hgb Hct MCV MCH MCHC RDW Plt Count MPV Absolute Neuts (auto) Neutrophils % Lymphocytes % Monocytes % Eosinophils % Basophils % Nucleated RBC % Sodium Potassium Chloride Carbon Dioxide Anion Gap BUN Creatinine Est GFR (CKD-EPI)AfAm Est GFR (CKD-EPI)NonAf POC Glucometer 224 Random Glucose Calcium Phosphorus Magnesium Total Bilirubin AST ALT Alkaline Phosphatase Total Protein Albumin Vancomycin Pre-Dose Active Medications Generic Name Dose Route Start Last Admin Trade Name Freq PRN Reason Stop Dose Admin Enoxaparin Sodium 40 mg 02/17/20 22:00 02/18/20 09:54 Lovenox - SQ 40 mg BID TRACEY Administration Aztreonam 2 gm/ Dextrose 100 mls @ 100 mls/hr 02/17/20 18:00 02/18/20 09:54 IVPB 100 mls/hr Q8H-IV TRACEY Administration Protocol Metronidazole 500 mg in 100 mls @ 100 mls/hr 02/17/20 15:00 02/18/20 09:53 Flagyl 500mg Premixed Ivpb - IVPB 100 mls/hr Q6H-IV TRACEY Administration Vancomycin HCl 1,500 mg/ 500 mls @ 250 mls/hr 02/17/20 22:00 02/18/20 13:37 Dextrose IVPB 250 mls/hr BID TRACEY Administration Protocol Lactated Ringer's 1,000 mls @ 125 mls/hr 02/17/20 10:30 02/17/20 16:47 Lactated Ringers Solution IV Not Given ASDIR TRACEY Insulin Aspart 1 vial 02/17/20 22:34 02/18/20 12:22 Novolog Vial Sliding Scale - SQ 6 units ACHS TRACEY Administration Protocol Insulin Aspart 6 units 02/17/20 22:35 02/18/20 12:22 Novolog Vial SQ 6 units TIDAC TRACEY Administration Insulin Detemir 27 units 02/17/20 22:48 02/18/20 06:05 Levemir Vial SQ 27 units BID@0700,2200 TRACEY Administration Losartan Potassium 50 mg 02/18/20 10:00 02/18/20 09:58 Cozaar - PO 50 mg DAILY TRACEY Administration Oxycodone HCl 5 mg 02/17/20 10:28 Roxicodone - PO Q4H PRN PAIN LEVEL 1-5 ASSESSMENT/PLAN: Pt is a 49 year old male with PMHx of HTN presenting to the ED with skin swelling and abscess not responding to outpatient antibiotic therapy, admitted for R groin cellulitis #Right groin cellulitis -surgery consulted (Dr. Handy); POD 1 I&D - packing replaced (to be replaced daily per surg) -ID consulted (PCN allergy), on vancomycin, aztreonam and flagyl -awaiting wound cultures #New onset DM -blood glucose on admission 487, A1c 14.1 -consulted endocrine (Dr. Griffin); changed regimen to Levemir 27u BID, Novolog 5u TIDAC and SSI -for outpatient CGMS sensor, GLP1, metformin 500 BID, Januvia 100mg daily; to clarify when to begin -continue Losartan, as will be renal protective in DM pt -Discussed weight loss, diet and exercise, and DM education #Hx of HTN -continue home Losartan FEN No standing fluids Monitor electrolytes Diabetic sodium diet PPx Lovenox 40mg BID Dispo Admitted to med surg. New onset DM, R groin cellulitis POD 1 I&D. On vanc, flagyl, aztreonam. awaiting cultures ATTENDING PHYSICIAN STATEMENT I saw and evaluated the patient. I reviewed the resident's note and discussed the case with the resident. I agree with the resident's findings and plan as documented. SUBJECTIVE: OBJECTIVE: ASSESSMENT AND PLAN:
--- NOTE | 2020-02-18 15:15 | PN ---
Teaching Attending Note Name of Resident: Sanjiv Servin ATTENDING PHYSICIAN STATEMENT I saw and evaluated the patient. I reviewed the resident's note and discussed the case with the resident. I agree with the resident's findings and plan as documented. SUBJECTIVE: Feeling well s/p post I and D 02/16. No fever/chills. OBJECTIVE: Afebrile, Hemodynamically Stable Last Vital Signs Temp Pulse Resp BP Pulse Ox 98 F 96 H 20 109/64 96 02/18/20 13:59 02/18/20 13:59 02/18/20 13:59 02/18/20 13:59 02/18/20 13:59 Heart - S1, S2, RRR Lungs - clear to auscultation Abdomen - High BMI. Soft, non-tender. Bowel Sounds normal. Extremities - R inner thigh/groin surgical site dressed. No surrounding tenderne ss/erythema. No calf tenderness. Neuro - AAO x 3. Tone/Power normal. Laboratory Results - last 24 hr 02/17/20 02/17/20 02/18/20 16:46 20:38 05:29 WBC RBC Hgb Hct MCV MCH MCHC RDW Plt Count MPV Absolute Neuts (auto) Neutrophils % Lymphocytes % Monocytes % Eosinophils % Basophils % Nucleated RBC % Sodium Potassium Chloride Carbon Dioxide Anion Gap BUN Creatinine Est GFR (CKD-EPI)AfAm Est GFR (CKD-EPI)NonAf POC Glucometer 286 321 255 Random Glucose Calcium Phosphorus Magnesium Total Bilirubin AST ALT Alkaline Phosphatase Total Protein Albumin Vancomycin Pre-Dose 02/18/20 02/18/20 02/18/20 06:40 06:40 11:15 WBC 8.1 RBC 4.08 Hgb 12.3 Hct 37.1 MCV 91.0 MCH 30.2 MCHC 33.2 RDW 13.4 Plt Count 268 MPV 7.1 L Absolute Neuts (auto) 4.6 Neutrophils % 57.2 Lymphocytes % 34.3 Monocytes % 6.6 Eosinophils % 1.2 Basophils % 0.7 Nucleated RBC % 0 Sodium 135 L Potassium 3.7 Chloride 99 Carbon Dioxide 30 Anion Gap 6 L BUN 8.1 Creatinine 0.6 Est GFR (CKD-EPI)AfAm 137.80 Est GFR (CKD-EPI)NonAf 118.89 POC Glucometer Random Glucose 269 H Calcium 8.3 L Phosphorus 3.4 Magnesium 1.9 Total Bilirubin 0.4 AST 17 ALT 25 Alkaline Phosphatase 69 Total Protein 5.7 L Albumin 2.3 L Vancomycin Pre-Dose 3.4 L 02/18/20 11:55 WBC RBC Hgb Hct MCV MCH MCHC RDW Plt Count MPV Absolute Neuts (auto) Neutrophils % Lymphocytes % Monocytes % Eosinophils % Basophils % Nucleated RBC % Sodium Potassium Chloride Carbon Dioxide Anion Gap BUN Creatinine Est GFR (CKD-EPI)AfAm Est GFR (CKD-EPI)NonAf POC Glucometer 224 Random Glucose Calcium Phosphorus Magnesium Total Bilirubin AST ALT Alkaline Phosphatase Total Protein Albumin Vancomycin Pre-Dose Current Medications Generic Name Dose Route Start Last Admin Trade Name Freq PRN Reason Stop Dose Admin Enoxaparin Sodium 40 mg 02/17/20 22:00 02/18/20 09:54 Lovenox - SQ 40 mg BID TRACEY Administration Aztreonam 2 gm/ Dextrose 100 mls @ 100 mls/hr 02/17/20 18:00 02/18/20 09:54 IVPB 100 mls/hr Q8H-IV TRACEY Administration Protocol Metronidazole 500 mg in 100 mls @ 100 mls/hr 02/17/20 15:00 02/18/20 09:53 Flagyl 500mg Premixed Ivpb - IVPB 100 mls/hr Q6H-IV TRACEY Administration Vancomycin HCl 1,500 mg/ 500 mls @ 250 mls/hr 02/17/20 22:00 02/18/20 13:37 Dextrose IVPB 250 mls/hr BID TRACEY Administration Protocol Lactated Ringer's 1,000 mls @ 125 mls/hr 02/17/20 10:30 02/17/20 16:47 Lactated Ringers Solution IV Not Given [facility] Insulin Aspart 1 vial 02/17/20 22:34 02/18/20 12:22 Novolog Vial Sliding Scale - SQ 6 units ACHS TRACEY Administration Protocol Insulin Aspart 6 units 02/17/20 22:35 02/18/20 12:22 Novolog Vial SQ 6 units TIDAC TRACEY Administration Insulin Detemir 27 units 02/17/20 22:48 02/18/20 06:05 Levemir Vial SQ 27 units BID@0700,2200 TRACEY Administration Losartan Potassium 50 mg 02/18/20 10:00 02/18/20 09:58 Cozaar - PO 50 mg DAILY TRACEY Administration Oxycodone HCl 5 mg 02/17/20 10:28 Roxicodone - PO Q4H PRN PAIN LEVEL 1-5 Home Medications Medication Instructions Recorded Losartan Potassium [Cozaar -] 50 mg PO DAILY 07/31/14 ASSESSMENT AND PLAN: 49 year old male with HTN, Morbid Obesity, presented to ED due to R groin area cellulits/abscess, not responding to outpatient Abx therapy with Clindamycin and Bactrim. CT A/P - Cellulitis R inguinal/groin region. 1. R Groin Cellulitits/Abscess POD 1 s/p I and D - Surgical Cx pos for Strep agalatiae GpB and Strep viridans. Prior Wound Cx - Strep agalactiae, Enterococcus Continue Azactam/Vanco/Flagyl as per ID - Abx recommendations for discharge requested from ID, awaiting final recs. 2. DM 2 - newly diagnosed, A1C 14 Started on Levemir, Novolog sliding scale. Endocrinology consulted for recommendations regarding outpatient/discharge regimen and for follow up. 3. HTN - Continue Losartan. DVT Px - Lovenox SQ
[2020-02-18] MEDS: oxyCODONE HCL 5 MG TABLET PO PRN (17:21)
[2020-02-18] MEDS: LACTATED RINGERS SOLUTION 1,000 ML IV SCH (19:50)
[2020-02-18] MEDS ORDERED: INSULIN (NOVOLOG) ASPART 100 UNITS/ML 10ML VIAL ONE (21:19)
[2020-02-19] MEDS ORDERED: INSULIN (LEVEMIR) 100 UNITS/ML UNITS SQ SCH (01:53)
[2020-02-19] MEDS ORDERED: PT OWN MED DRAWER 7, Y5N ONE ×2 (02:38→09:18)
[2020-02-19] MEDS: AZTREONAM 2 GM in DEXTROSE 5%-WATER 100 ML IVPB SCH ×2 (02:41→09:50)
[2020-02-19] MEDS: INSULIN SLIDING SCALE (NOVOLOG) 1 VIAL SQ SCH ×2 (07:15→12:03)
[2020-02-19] MEDS: INSULIN (NOVOLOG) ASPART 100 UNITS/ML 10ML VIAL SQ SCH ×2 (07:16→12:03)
[2020-02-19 07:22] LABS: BASO % 0.9 % (0-2.0); EOS % 2.2 % (0-4.5); HEMATOCRIT 37.7 % (35.4-49); HEMOGLOBIN 12.6 GM/dL (11.7-16.9); LYMPH % 36.5 % (8-40); MCH 30.3 pg (25.7-33.7); MCHC 33.4 g/dl (32.0-35.9); MEAN CELL VOLUME 90.8 fl (80-96); MEAN PLT VOLUME 6.9 fl (7.5-11.1); MONO % 6.2 % (3.8-10.2); NEUT % 54.2 % (42.8-82.8); PLATELET COUNT 267 K/MM3 (134-434); RBC 4.15 M/mm3 (4.00-5.60); RDW 13.9 % (11.9-15.9); WHITE BLOOD COUNT 6.9 K/mm3 (4.0-10.0)
[2020-02-19 07:35] LABS: ALBUMIN 2.4 g/dl (3.4-5.0); BILIRUBIN,TOTAL 0.8 mg/dL (0.2-1); BLOOD UREA NITROGEN 6.6 mg/dL (7-18); CALCIUM 7.8 mg/dL (8.5-10.1); CREATININE 0.6 mg/dL (0.55-1.3); MAGNESIUM 1.7 mg/dL (1.8-2.4); PHOSPHOROUS 4.4 mg/dL (2.5-4.9); TOT PROT 5.7 g/dl (6.4-8.2)
[2020-02-19] MEDS ORDERED: MAGNESIUM 2GM/50ML STERILE WATER IVPB IVPB ONE (09:30)
[2020-02-19] MEDS: ENOXAPARIN NA (PORCINE) 40 MG/0.4 ML DISP.SYRIN SQ SCH (09:50)
[2020-02-19] MEDS: LOSARTAN POTASSIUM 50 MG TABLET PO SCH (09:55)
[2020-02-19] MEDS: LACTATED RINGERS SOLUTION 1,000 ML IV SCH (12:03)
[2020-02-19] MEDS ORDERED: PNEUMOCOCCAL 23 VACCINE 0.5 ML VIAL IM ONE (12:48)
[2020-02-19] MEDS ORDERED: FLU VACCINE (FLULAVAL) PF 60 MCG/0.5 ML SYRINGE 2020-2021 IM ONE (12:51)
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
[2020-02-19] MEDS: VANCOMYCIN HCL 1,500 MG in DEXTROSE 5%-WATER - 500 ML IVPB SCH (14:24)
[2020-02-19 14:37] VITALS: BP 128/79; PULSE 84; TEMP 98.4
--- NOTE | 2020-02-19 14:56 | PN ---
Progress Note, Physician Chief Complaint: S/P I&D R GROIN/MEDIAL THIGH ABSCESS C/O PAIN NO FEVER/ CHILLS CULTURES MIXED GBS, ENTEROCOCCUS,VIRIDANS STREP AFEBRILE TOLERATING ANTIBIOTICS - Current Medication List Current Medications: Active Medications Enoxaparin Sodium (Lovenox -) 40 mg SQ BID [facility] Last Admin: 02/19/20 09:50 Dose: 40 mg Documented by: Aztreonam 2 gm/ Dextrose 100 mls @ 100 mls/hr IVPB Q8H-IV [facility]; Protocol Last Admin: 02/19/20 09:50 Dose: 100 mls/hr Documented by: Metronidazole (Flagyl 500mg Premixed Ivpb -) 500 mg in 100 mls @ 100 mls/hr IVPB Q6H-IV [facility] Last Admin: 02/19/20 09:50 Dose: 100 mls/hr Documented by: Vancomycin HCl 1,500 mg/ (Dextrose) 500 mls @ 250 mls/hr IVPB BID [facility]; Protocol Last Admin: 02/19/20 14:24 Dose: 250 mls/hr Documented by: Lactated Ringer's (Lactated Ringers Solution) 1,000 mls @ 125 mls/hr IV ASDIR [facility] Last Admin: 02/19/20 12:03 Dose: Not Given Documented by: Insulin Aspart (Novolog Vial Sliding Scale -) 1 vial SQ ACHS [facility]; Protocol Last Admin: 02/19/20 12:03 Dose: 6 units Documented by: Insulin Aspart (Novolog Vial) 6 units SQ TIDAC [facility] Last Admin: 02/19/20 12:03 Dose: 6 units Documented by: Insulin Detemir (Levemir Vial) 30 units SQ BID@0700,2200 [facility] Last Admin: 02/19/20 07:16 Dose: 30 units Documented by: Losartan Potassium (Cozaar -) 50 mg PO DAILY [facility] Last Admin: 02/19/20 09:55 Dose: 50 mg Documented by: Oxycodone HCl (Roxicodone -) 5 mg PO Q4H PRN PRN Reason: PAIN LEVEL 1-5 Last Admin: 02/18/20 17:21 Dose: 5 mg Documented by: - Objective Vital Signs: Vital Signs Temperature 98.4 F 02/19/20 14:35 Pulse Rate 84 02/19/20 14:35 Respiratory Rate 20 02/19/20 14:35 Blood Pressure 128/79 02/19/20 14:35 O2 Sat by Pulse Oximetry (%) 96 02/19/20 14:35 Constitutional: Yes: No Distress Eyes: Yes: Conjunctiva Clear Cardiovascular: Yes: Regular Rate and Rhythm, S1, S2 Respiratory: Yes: CTA Bilaterally Gastrointestinal: Yes: Normal Bowel Sounds, Soft Extremities: Yes: Amputation Integumentary: Yes: Other (INCISIONAL WOUND PACKED NO DRAINAGE NOTED) Labs: CBC, BMP 02/19/20 06:55 02/19/20 06:55 INR, PTT INR 1.01 (0.83-1.09) 02/15/20 20:15 Assessment/Plan S/P I&D SOFT TISSUE ABSCESS R GROIN/THIG MORBID OBESITY NEW ONSET DIABETES PCN ALLERGY SUBSTITUTE KEFLEX 500MG PO QID X 7D OUTPATIENT SURGICAL FOLLOW UP
--- NOTE | 2020-02-19 15:14 | DS ---
Physical Exam: SUBJECTIVE: Patient seen and examined OBJECTIVE: Vital Signs Period Temp Pulse Resp BP Sys/Almaguer Pulse Ox Last 24 Hr 97.6 F-98.4 F 81-86 18-20 113-131/73-94 95-98 PHYSICAL EXAM GENERAL: The patient is awake, alert, and fully oriented, in no acute distress. HEAD: Normal with no signs of trauma. EYES: PERRL, extraocular movements intact, sclera anicteric, conjunctiva clear. ENT: Ears normal, nares patent, oropharynx clear without exudates, moist mucous membranes. NECK: Trachea midline, full range of motion, supple. LUNGS: Breath sounds equal, clear to auscultation bilaterally, no wheezes, no crackles, no accessory muscle use. HEART: Regular rate and rhythm, S1, S2 without murmur, rub or gallop. ABDOMEN: Soft, nontender, nondistended, normoactive bowel sounds, no guarding, no rebound, no hepatosplenomegaly, no masses. EXTREMITIES: 2+ pulses, warm, well-perfused, no edema. NEUROLOGICAL: Cranial nerves II through XII grossly intact. Normal speech, gait not observed. PSYCH: Normal mood, normal affect. SKIN: Warm, dry, normal turgor, no rashes or lesions noted. LABS Laboratory Results - last 24 hr 02/18/20 02/18/20 02/19/20 16:57 21:48 02:55 WBC RBC Hgb Hct MCV MCH MCHC RDW Plt Count MPV Absolute Neuts (auto) Neutrophils % Lymphocytes % Monocytes % Eosinophils % Basophils % Nucleated RBC % Sodium Potassium Chloride Carbon Dioxide Anion Gap BUN Creatinine Est GFR (CKD-EPI)AfAm Est GFR (CKD-EPI)NonAf POC Glucometer 273 178 Random Glucose Calcium Phosphorus Magnesium Total Bilirubin AST ALT Alkaline Phosphatase Total Protein Albumin Ur Random Creatinine Cancelled U Random Total Protein Protein/Creatinin Ratio 02/19/20 02/19/20 02/19/20 02:55 06:05 06:55 WBC 6.9 RBC 4.15 Hgb 12.6 Hct 37.7 MCV 90.8 MCH 30.3 MCHC 33.4 RDW 13.9 Plt Count 267 MPV 6.9 L Absolute Neuts (auto) 3.7 Neutrophils % 54.2 Lymphocytes % 36.5 Monocytes % 6.2 Eosinophils % 2.2 D Basophils % 0.9 Nucleated RBC % 0 Sodium Potassium Chloride Carbon Dioxide Anion Gap BUN Creatinine Est GFR (CKD-EPI)AfAm Est GFR (CKD-EPI)NonAf POC Glucometer 218 Random Glucose Calcium Phosphorus Magnesium Total Bilirubin AST ALT Alkaline Phosphatase Total Protein Albumin Ur Random Creatinine 20.0 L U Random Total Protein 6.4 Protein/Creatinin Ratio 0.3 02/19/20 02/19/20 06:55 11:44 WBC RBC Hgb Hct MCV MCH MCHC RDW Plt Count MPV Absolute Neuts (auto) Neutrophils % Lymphocytes % Monocytes % Eosinophils % Basophils % Nucleated RBC % Sodium 137 Potassium 4.0 Chloride 101 Carbon Dioxide 30 Anion Gap 6 L BUN 6.6 L Creatinine 0.6 Est GFR (CKD-EPI)AfAm 137.80 Est GFR (CKD-EPI)NonAf 118.89 POC Glucometer 212 Random Glucose 207 H Calcium 7.8 L Phosphorus 4.4 Magnesium 1.7 L Total Bilirubin 0.8 AST 42 H ALT 41 Alkaline Phosphatase 72 Total Protein 5.7 L Albumin 2.4 L Ur Random Creatinine U Random Total Protein Protein/Creatinin Ratio HOSPITAL COURSE: Date of Admission:02/16/20 Date of Discharge: 02/19/20 Minutes to complete discharge: 36 Discharge Summary Problems reviewed: Yes Reason For Visit: HYPERGLYCEMIA,CELLULITIS OF RIGHT GROIN Current Active Problems Hyperglycemia (Acute) Pustular lesion (Acute) Type 2 diabetes mellitus with diabetic dermatitis (Acute) Type 2 diabetes mellitus with other diabetic arthropathy (Acute) Condition: Improved - Instructions Diet, Activity, Other Instructions: You came to the hospital because you had a wound near the right side of your groin. You had surgery done to open the wound and allow it to drain out, and it was filled with packing. You will have to change this packing daily yourself, and with Visiting Nurse Services every other day. You were also found to have a high blood sugar, and you were found to have type 2 diabetes. You were treated with insulin while in the hospital. You will be started on medications to help control your diabetes, and you will need to follow up with your endrocrinologist. Medications Please START the following medications: 1. Tresiba 40 units daily 2. Novolog 5u with each meal if glucose is over 150mg/dl 3. Trulicity .75mg weekly 4. Janumet 50/1000mg twice a day. 5. Keflex 500mg 4 times a day (every 6 hours) for 7 days. You will also receive the Freestyle Stormy continuous glucose monitoring system that will monitor your blood glucose measurements. Please CONTINUE your Losartan 50mg once daily as prescribed. Follow Up 1. Primary Care Physician, Dr. Jimenez, in 1-3 weeks for overall health care management. 2. Outsole Cementer, Dr. Griffin, in 2 weeks to follow up on your diabetes. 3. Surgeon, Dr. Handy, in 1-2 weeks to follow up on the procedure on the abscess. 4. Infectious disease physician, Dr. Hernandez, within 2 weeks to follow up on the infection in your wound. If you have any new, worsening or changing symptoms please return to the ED or call 911. Packing for Wound 1" Iodoform packing into R medial thigh daily You will have visiting nursing services to assist with your dressing changes Referrals: Cole Hernandez MD [Staff Physician] - 2 Weeks Dakota Handy MD [Staff Physician] - 1 Week Giovanna Jimenez MD [Primary Care Provider] - 3 Weeks Robert Griffin MD [Staff Physician] - 1 Week Disposition: VNS/HOME HEALTH CARE - Home Medications Comprehensive Discharge Medication List: Ambulatory Orders Losartan Potassium [Cozaar -] 50 mg PO DAILY 07/31/14 Cephalexin Monohydrate [Keflex -] 500 mg PO Q6HPO #28 capsule 02/19/20 Dulaglutide [Trulicity] 0.75 mg SQ WEEKLY #4 pen.injctr 02/19/20 Flash Glucose Sensor [Freestyle Stormy 2 Sensor] 1 each MC DAILY #1 kit 02/19/20 Insulin (LOG) Aspart [NovoLOG -] 5 unit SQ TID PRN #1 vial 02/19/20 Insulin Degludec [Tresiba] 40 unit SQ DAILY #1 vial 02/19/20 Sitagliptin Phos/Metformin HCl [Janumet 50-1,000 mg Tablet] 1 each PO BID #60 tablet 02/19/20 ATTENDING PHYSICIAN STATEMENT I saw and evaluated the patient. I reviewed the resident's note and discussed the case with the resident. I agree with the resident's findings and plan as documented. SUBJECTIVE: OBJECTIVE: ASSESSMENT AND PLAN:
[2020-02-19] MEDS: oxyCODONE HCL 5 MG TABLET PO PRN (16:04)
--- NOTE | 2020-02-19 17:01 | PN ---
Teaching Attending Note Name of Resident: Sanjiv Servin ATTENDING PHYSICIAN STATEMENT I saw and evaluated the patient. I reviewed the resident's note and discussed the case with the resident. I agree with the resident's findings and plan as documented. SUBJECTIVE: Feeling well s/p post I and D 02/16. No fever/chills. OBJECTIVE: Afebrile, Hemodynamically Stable Last Vital Signs Temp Pulse Resp BP Pulse Ox 98.4 F 84 20 128/79 96 02/19/20 14:35 02/19/20 14:35 02/19/20 14:35 02/19/20 14:35 02/19/20 14:35 Heart - S1, S2, RRR Lungs - clear to auscultation Abdomen - High BMI. Soft, non-tender. Bowel Sounds normal. Extremities - R inner thigh/groin surgical site dressed. No surrounding tend erness/erythema. No calf tenderness. Neuro - AAO x 3. Tone/Power normal. Laboratory Results - last 24 hr 02/18/20 02/18/20 02/19/20 16:57 21:48 02:55 WBC RBC Hgb Hct MCV MCH MCHC RDW Plt Count MPV Absolute Neuts (auto) Neutrophils % Lymphocytes % Monocytes % Eosinophils % Basophils % Nucleated RBC % Sodium Potassium Chloride Carbon Dioxide Anion Gap BUN Creatinine Est GFR (CKD-EPI)AfAm Est GFR (CKD-EPI)NonAf POC Glucometer 273 178 Random Glucose Calcium Phosphorus Magnesium Total Bilirubin AST ALT Alkaline Phosphatase Total Protein Albumin Ur Random Creatinine Cancelled U Random Total Protein Protein/Creatinin Ratio 02/19/20 02/19/20 02/19/20 02:55 06:05 06:55 WBC 6.9 RBC 4.15 Hgb 12.6 Hct 37.7 MCV 90.8 MCH 30.3 MCHC 33.4 RDW 13.9 Plt Count 267 MPV 6.9 L Absolute Neuts (auto) 3.7 Neutrophils % 54.2 Lymphocytes % 36.5 Monocytes % 6.2 Eosinophils % 2.2 D Basophils % 0.9 Nucleated RBC % 0 Sodium Potassium Chloride Carbon Dioxide Anion Gap BUN Creatinine Est GFR (CKD-EPI)AfAm Est GFR (CKD-EPI)NonAf POC Glucometer 218 Random Glucose Calcium Phosphorus Magnesium Total Bilirubin AST ALT Alkaline Phosphatase Total Protein Albumin Ur Random Creatinine 20.0 L U Random Total Protein 6.4 Protein/Creatinin Ratio 0.3 02/19/20 02/19/20 06:55 11:44 WBC RBC Hgb Hct MCV MCH MCHC RDW Plt Count MPV Absolute Neuts (auto) Neutrophils % Lymphocytes % Monocytes % Eosinophils % Basophils % Nucleated RBC % Sodium 137 Potassium 4.0 Chloride 101 Carbon Dioxide 30 Anion Gap 6 L BUN 6.6 L Creatinine 0.6 Est GFR (CKD-EPI)AfAm 137.80 Est GFR (CKD-EPI)NonAf 118.89 POC Glucometer 212 Random Glucose 207 H Calcium 7.8 L Phosphorus 4.4 Magnesium 1.7 L Total Bilirubin 0.8 AST 42 H ALT 41 Alkaline Phosphatase 72 Total Protein 5.7 L Albumin 2.4 L Ur Random Creatinine U Random Total Protein Protein/Creatinin Ratio Current Medications Generic Name Dose Route Start Last Admin Trade Name Freq PRN Reason Stop Dose Admin Cephalexin HCl 500 mg 02/19/20 18:00 Keflex - PO Q6HPO TRACEY Enoxaparin Sodium 40 mg 02/17/20 22:00 02/19/20 09:50 Lovenox - SQ 40 mg BID TRACEY Administration Lactated Ringer's 1,000 mls @ 125 mls/hr 02/17/20 10:30 02/19/20 12:03 Lactated Ringers Solution IV Not Given ASDIR TRACEY Insulin Aspart 1 vial 02/17/20 22:34 02/19/20 12:03 Novolog Vial Sliding Scale - SQ 6 units ACHS TRACEY Administration Protocol Insulin Aspart 6 units 02/17/20 22:35 02/19/20 12:03 Novolog Vial SQ 6 units TIDAC TRACEY Administration Insulin Detemir 30 units 02/19/20 01:53 02/19/20 07:16 Levemir Vial SQ 30 units BID@0700,2200 TRACEY Administration Losartan Potassium 50 mg 02/18/20 10:00 02/19/20 09:55 Cozaar - PO 50 mg DAILY TRACEY Administration Oxycodone HCl 5 mg 02/17/20 10:28 02/19/20 16:04 Roxicodone - PO 5 mg Q4H PRN Administration PAIN LEVEL 1-5 Discharge Medications Medication Instructions Recorded Losartan Potassium [Cozaar -] 50 mg PO DAILY 07/31/14 Cephalexin Monohydrate [Keflex -] 500 mg PO Q6HPO #28 capsule 02/19/20 Dulaglutide [Trulicity] 0.75 mg SQ WEEKLY #4 pen.injctr 02/19/20 Flash Glucose Sensor [Freestyle 1 each MC DAILY #1 kit 02/19/20 Stormy 2 Sensor] Insulin (LOG) Aspart [NovoLOG -] 5 unit SQ TID PRN #1 vial 02/19/20 Insulin Degludec [Tresiba] 40 unit SQ DAILY #1 vial 02/19/20 Sitagliptin Phos/Metformin HCl 1 each PO BID #60 tablet 02/19/20 [Janumet 50-1,000 mg Tablet] ASSESSMENT AND PLAN: 49 year old male with HTN, Morbid Obesity, presented to ED due to R groin area cellulits/abscess, not responding to outpatient Abx therapy with Clindamycin and Bactrim. CT A/P - Cellulitis R inguinal/groin region. 1. R Groin Cellulitits/Abscess POD 2 s/p I and D - Surgical Cx pos for Strep agalatiae GpB and Strep viridans. Prior Wound Cx - Strep agalactiae, Enterococcus Treated with Azactam/Vanco/Flagyl as in-patient - for transition to Keflex for 7 additional days as per ID 2. DM 2 - newly diagnosed, A1C 14 Started on Trulicity, Tresiba, Janumet, Novolog AC by Endocrinology - will follow on discharge. 3. HTN - Continue Losartan. 4. Hypomagnesemia - repleted. Medically optimized and stable for discharge with Endocrinology and Surgery follow up.
[2020-02-19] MEDS ORDERED: CEPHALEXIN MONOHYDRATE 500 MG CAPSULE (UD) PO SCH (18:00)
== END 2020-02-19 17:43 | disposition home health service (06) | DRG 580 ==
LOC: JER 18:53 → JERBED 02-16 → J7W 02-16 01:49
PROVIDERS: ADMIT Hospitalist
PROC: 0J9C0ZZ Drainage of Pelvic Region Subcutaneous Tissue and Fascia, Open Approach (ICD-10-PCS; principal; 2020-02-17 08:00)
DX: L03.314 Cellulitis of groin (principal); Z68.42 Body mass index [BMI] 45.0-49.9, adult; E87.1 Hypo-osmolality and hyponatremia; I10 Essential (primary) hypertension; E66.01 Morbid (severe) obesity due to excess calories; E83.42 Hypomagnesemia; E11.620 Type 2 diabetes mellitus with diabetic dermatitis; E11.618 Type 2 diabetes mellitus with other diabetic arthropathy; Z88.0 Allergy status to penicillin; L08.9 Local infection of the skin and subcutaneous tissue, unspecified
CPT/HCPCS: 36415; 71045-TC-FY; 74177-TC; 80053; 80061; 82043; 82565; 82570; 82803; 82962; 83036; 83605; 83721; 83735; 84100; 84156; 84443; 85025; 85610; 85730; 87040; 87070; 87077; 87186; 87205; 90732; 93005; 93010; 94760; 99285-25; G0009; G0480; J0131; Q2036; Q9967; U0003